=== PATIENT | male | born 1970 | race African-American/Black ===

== ENCOUNTER 2017-12-11 21:25 | Emergency (ER) | payer MEDICARE, OTHER, SELFPAY ==
[2017-12-11 21:41] VITALS: BP 103/63; PULSE 80; RESP 16; TEMP 37.4; O2SAT 99; BMI 29.3
[2017-12-12 00:22] VITALS: BP 110/71; PULSE 74; RESP 18; O2SAT 100
--- NOTE | 2017-12-12 00:29 | ED_ITS ---
HPI - Back Pain/Injury General Chief Complaint: Back Pain/Injury Stated Complaint: BACK PAIN, MEDS ARE NOT WORKING Time Seen by Provider: 12/12/17 00:09 Source: patient, family, RN notes reviewed and old records reviewed History of Present Illness HPI Narrative: Patient is a 47-year-old male who presents with back pain which is significantly worse today. He has ongoing problems with his liver with primary sclerosing cholangitis. He also has chronic ongoing back pain. He has been using a 10s unit he is going to physical therapy. He injured in the knee. He sometimes gets flares. Yesterday he was at physical therapy I today he started noticing worsening bilateral lumbar pain. No numbness or tingling in his legs. No changes in bowel or bladder habits and no fever. He typically takes Percocet for his pain which did not help today. He also has a back brace as well. He has no abdominal pain flank pain painful urination nausea or vomiting. He feels as though this is exacerbation of his ongoing back pain with out other all problems. MD Complaint: back pain Related Data Home Medications Medication Instructions Recorded Confirmed LIDOCAINE (LIDODERM) 1 ea TOPICAL SEE INSTRUCTIONS #0 05/28/16 12/11/17 alendronate-vitamin D3 [Fosamax 1 tab PO WEEKLY #0 tab 05/28/16 12/11/17 Plus D] calcium carbonate 500 mg PO BID #0 tab 05/28/16 12/11/17 esomeprazole magnesium [Nexium] 40 mg PO QDAY #0 05/28/16 12/11/17 furosemide 40 mg PO QDAY #0 05/28/16 12/11/17 lactulose 10 gm PO #0 ml 05/28/16 nadolol [Corgard] 80 mg PO QDAY #0 tab 05/28/16 12/11/17 ondansetron [Zofran ODT] 8 mg PO TIDP PRN #0 05/28/16 12/11/17 spironolactone [Aldactone] 100 mg PO QDAY #0 05/28/16 12/11/17 aspirin 81 mg PO QDAY #0 06/19/16 12/11/17 ACETAMINOPHEN 500 mg PO Q6HP PRN #0 06/25/16 12/11/17 rifaximin [Xifaxan] 550 mg PO BID #0 09/28/16 12/11/17 warfarin [Coumadin] 2.5 mg PO QDAY #0 09/28/16 12/11/17 oxycodone-acetaminophen 12/11/17 oxycodone-acetaminophen [Percocet] 1 tab PO Q4HP PRN 12/11/17 12/11/17 Previous Rx's Medication Instructions Recorded methocarbamol [Robaxin-750] 750 mg PO QIDP PRN #40 tab 03/08/17 diazepam [Valium] 5 mg PO BID PRN #10 tab 12/12/17 oxycodone-acetaminophen [Percocet] 2 tab PO Q6H PRN #10 tab 12/12/17 Allergies Allergy/AdvReac Type Severity Reaction Status Date / Time Iodinated Contrast- Oral and AdvReac Intermediate NAUSEA Verified 12/12/17 00:33 IV Dye [Iodinated Contrast Media - IV Dye] Review of Systems Review of Systems All systems reviewed & are unremarkable except as noted in HPI and below Constitutional Denies chills, Denies fever(s), Denies lethargy and Denies weakness Cardiovascular Denies chest pain, Denies dyspnea and Denies dyspnea on exertion Respiratory Denies cough, Denies dyspnea, Denies dyspnea on exertion and Denies wheezing Gastrointestinal Gastrointestinal: Denies abdominal pain, Denies change in bowel habits, Denies diarrhea, Denies nausea and Denies vomiting Genitourinary Denies urinary incontinence Musculoskeletal Reports system reviewed and no additional complaints, except as docu, Reports back pain, Denies atrophy, Reports limited range of motion, Denies muscle weakness, Reports stiffness and Denies tingling Neurologic Denies tingling and Denies weakness Allergic/Immunologic Denies wheezing PFSH Medical History Chronic back pain (Acute) Social History Smoking Status: Never smoker Exam Const General: healthy appearing Nutritional Appearance: average body habitus Other: Appears in pain Neck Neck: full ROM and no meningeal signs Chest Chest: normal inspection of the chest Resp Effort & Inspection: normal respiratory effort, able to speak in complete sentences, no respiratory distress and no use of accessory muscles Auscultation: clear to auscultation bilaterally, no rales, no rhonchi and no wheezes Cardio Rate: regular rate Rhythm: regular rhythm Heart Sounds: no click, no gallops, no murmurs and no rubs Pulses: normal peripheral pulses GI Inspection: non-distended Palpation: soft, no hepatosplenomegaly, No guarding, No pulsatile mass and No tender Auscultation: normal bowel sounds Back/Spine/Pelvis Other: Lower all bilateral lumbar tenderness he does have a 10s unit on each side and a back brace. No bony deformities. Neuro General: alert, awake, oriented x3, normal light touch, pain and propioception and normal sensation to monofilament Cognition: normal cognition Gait: normal gait MDM - Back Pain/Injury MDM Narrative Medical decision making narrative: Long discussion with patient. This seems to be an acute exacerbation of his chronic ongoing pain. He does not feel like his typical primary sclerosing cholangitis pain. His they tried to get into his primary unable to do so because she is on vacation. At this does happen to him occasionally. He does not have red flag symptoms at this time. Pain significantly improved with Valium and morphine. Differential Diagnosis Differential diagnosis: Likely lumbar radiculopathy, sciatica, strain of lumbar region, renal colic, pyelonephritis, thoracic back pain and AAA Medical Records Attestation: I reviewed the patient's medical records. Discharge Plan Departure Patient Disposition: Home, Self-Care Clinical Impression: Acute exacerbation of chronic low back pain Instructions: DI for Low Back Pain, DI for Back Pain With Sciatica Activity Restrictions/Additional Instructions: *You have been diagnosed with acute on chronic back pain *What to do: Continue with physical therapy, heating pad *Take medications as directed Valium 1 tablet every 12 hr only if needed for severe muscle spasm and pain -Percocet 1-2 tablets every 6 hr it only if needed for severe pain *Follow up with your primary care provider in 2-3 days *Return to ER if you should have worsening back pain, numbness, weakness, it urine incontinence, or any new, worsening or concerning symptoms CONTROLLED SUBSTANCE DISCHARGE (Narcotoic/benzodiazepine/Flexeril/Phenergan) 1. You have been prescribed narcotic medications, it does have acetaminophen/ Tylenol/paracetamol in it so do not take extra Tylenol or Tylenol containing products 2. Please understand that we cannot provide further refills of narcotics, benzodiazepines or controlled substances through the ED and her pain management will need to be through your provider. 3. While on these medications you cannot drive or operate heavy machinery. 4. You cannot sign legal documents or perform any duties such as this. 5. As long as you're taking opiate pain medications he should also be taking a stool softener such as Colace, Dulcolax, MiraLAX or prune juice, to help avoid constipation. Prescriptions: New oxycodone-acetaminophen [Percocet] 5-325 mg tablet 2 tab PO Q6H PRN (Reason: pain) Qty: 10 RF: 0 diazepam [Valium] 5 mg tablet 5 mg PO BID PRN (Reason: muscle spasm) Qty: 10 RF: 0 No Action alendronate-vitamin D3 [Fosamax Plus D] 70 MG/2,800 UNITS tablet 1 tab PO WEEKLY Qty: 0 RF: 0 esomeprazole magnesium [Nexium] 40 MG capsule,delayed release(DR/EC) 40 mg PO QDAY Qty: 0 RF: 0 calcium carbonate 200 MG tablet,chewable 500 mg PO BID Qty: 0 RF: 0 furosemide 20 MG tablet 40 mg PO QDAY Qty: 0 RF: 0 lactulose 10 GM/15 ML solution 10 gm PO Qty: 0 RF: 0 nadolol [Corgard] 80 MG tablet 80 mg PO QDAY Qty: 0 RF: 0 LIDOCAINE (LIDODERM) 1 ea Topical SEE INSTRUCTIONS Qty: 0 RF: 0 ondansetron [Zofran ODT] 8 MG tablet,disintegrating 8 mg PO TIDP PRN (Reason: Nausea) Qty: 0 RF: 0 spironolactone [Aldactone] 50 MG tablet 100 mg PO QDAY Qty: 0 RF: 0 aspirin 81 MG tablet,delayed release (DR/EC) 81 mg PO QDAY Qty: 0 RF: 0 ACETAMINOPHEN 500 mg PO Q6HP PRN (Reason: Pain (Scale Score 1-3)) Qty: 0 RF: 0 warfarin [Coumadin] 2.5 MG tablet 2.5 mg PO QDAY Qty: 0 RF: 0 rifaximin [Xifaxan] 550 MG tablet 550 mg PO BID Qty: 0 RF: 0 methocarbamol [Robaxin-750] 750 MG tablet 750 mg PO QIDP PRNQty: 40 RF: 0 oxycodone-acetaminophen 5-325 mg tablet RF: 0 oxycodone-acetaminophen [Percocet] 5 MG/325 MG tablet 1 tab PO Q4HP PRN (Reason: pain) RF: 0 Referrals: Brando Lucero MD [Primary Care Provider] -
[2017-12-12] MEDS: MORPHINE 4 MG/ML VIAL INJ (00:38)
[2017-12-12] MEDS: diazePAM 5 MG TABLET PO (00:50)
[2017-12-12] MEDS: ONDANSETRON 4 MG ODT PO (00:51)
--- NOTE | 2017-12-12 00:52 | PC.NURSE ---
pt reports got nauseated after medicated with morphine and valium. medicated with zofran 4mg ODT after orders obtained.
[2017-12-12 01:10] VITALS: BP 112/74; PULSE 79; RESP 18; O2SAT 98
[2017-12-12 01:42] VITALS: BP 106/68; PULSE 79; RESP 12; O2SAT 98
== END 2017-12-12 01:44 | disposition home or self-care (01) ==
PROVIDERS: Emergency Provider Emergency Medicine; PCP Internal Medicine
DX: M54.5 Low back pain (principal); G89.29 Other chronic pain
CPT/HCPCS: 96372; 99283; J2270

== ENCOUNTER 2017-12-21 19:02 | Emergency (ER) | payer MEDICARE, OTHER, SELFPAY ==
[2017-12-21] VITALS (12 sets, daily range): BP systolic 61–108; BP diastolic 40–64; PULSE 58–71; RESP 16–99; TEMP 36.6–37.2; O2SAT 99–100
[2017-12-21] MEDS: CEFTRIAXONE 1 GM/50 ML FROZ.PIGGY IV (20:02)
--- NOTE | 2017-12-21 20:04 | PC.NURSE ---
Ed MD attempted central line after multiple peripheral IV attempts in arm. Central Line wire persistently hit something. ED MD decided to do R EJ with 14g catheter. Currently flushes will not draw blood.
[2017-12-21] MEDS: METOCLOPRAMIDE 10 MG/2 ML INJ IV (20:21)
[2017-12-21] MEDS: OCTREOTIDE 100 MCG/ML VIAL 50 MCG IV (20:22)
[2017-12-21 20:35] LABS: INR 2.6 (0.9-1.3); Prothrombin Time 27.7 SECONDS (10.1-12.7)
[2017-12-21 20:36] LABS: Add Manual Diff / Slide Review NO; Basophils Percent Auto 0.9 % (0-2); Eosinophils Percent Auto 3.7 % (2-4); Lymphocytes Percent Auto 13.4 % (25-40); Mean Corpuscular HGB Conc 32.5 % (30-36); Monocytes Percent Auto 11.2 % (3-14); Neutrophils Absolute Auto 5800 /uL (3000-5900); Neutrophils Percent Auto 70.8 % (50-75); Red Cell Distribution Width 24.3 % (11.6-14.8); White Blood Cell Count 8.2 X10^3/uL (4.5-11.0)
[2017-12-21 20:38] LABS: PTT Partial Thromboplastin Tim 41 SECONDS (26.4-36.2)
[2017-12-21] MEDS: SODIUM CHLORIDE 0.9% 1,000 ML 1000 ML IV ×2 (20:38→22:20)
[2017-12-21 20:39] LABS: BUN Creatinine Ratio 17.8 (6-22); Calcium 8.1 mg/dL (8.4-10.2); Estimated Glomerular Filt Rate > 60.0 mL/min (>60); Glucose 148 mg/dL (70-100); HEMOLYSIS < 15 (0-50); Sodium 132 mmol/L (137-145)
[2017-12-21] MEDS: PANTOPRAZOLE 80 MG in SODIUM CHLORIDE 0.9% 100 ML 10 ML IV (20:39)
[2017-12-21 20:40] LABS: Hematocrit 21.5 % (41-53)
[2017-12-21 20:41] LABS: Platelet Count 96 X10^3/uL (150-400)
[2017-12-21 20:43] LABS: Potassium 6.1 mmol/L (3.4-5.1)
[2017-12-21 20:53] LABS: Hypochromasia 1+; Poikilocytosis 1+; Polychromasia 1+
[2017-12-21] MEDS: OCTREOTIDE 500 MCG in SODIUM CHLORIDE 0.9% 100 ML 10.1 ML IV (20:53)
[2017-12-21 20:54] LABS: Anisocytosis 3+
--- NOTE | 2017-12-21 21:16 | DI.RAD.S_ITS ---
PROCEDURE: XR CHEST 1V INDICATIONS: vomitting TECHNIQUE: One view of the chest was acquired. COMPARISON: [facility], , CHEST 1 VIEW, 07/26/2016, 8:52. FINDINGS: Surgical changes and devices: None. Lungs and pleura: Lung volumes are low. There is mild atelectasis at the left lung base and right midlung. No pleural effusions or pneumothorax. Lungs are clear. Mediastinum: Mediastinal contours appear normal. Heart size is normal. Bones and chest wall: No suspicious bony lesions. Overlying soft tissues appear unremarkable. IMPRESSION: Low lung volumes and atelectasis. Dictated by: Mariella Bustamante M.D. on 12/21/2017 at 21:31 Approved by: Mariella Bustamante M.D. on 12/21/2017 at 21:32
[2017-12-21] MEDS: INSULIN REGULAR 100 UNIT/ML 3 ML VIAL 10 UNIT IV (21:27)
[2017-12-21] MEDS: DEXTROSE 50 % IN WATER 25 GM/50 ML SYRINGE IV (21:27)
[2017-12-21] MEDS: CALCIUM GLUCONATE 9.3 MEQ in SODIUM CHLORIDE 0.9% 50 ML 140 ML IV (23:09)
[2017-12-21] MEDS: PROTHROMBIN CPLX(PCC)4FACT 1,000 UNIT/40 ML VIAL 2500 UNIT IV (23:12)
[2017-12-21 23:19] LABS: Add Manual Diff / Slide Review NO; Basophils Percent Auto 0.2 % (0-2); Eosinophils Percent Auto 1.5 % (2-4); Hematocrit 21.3 % (41-53); Lymphocytes Percent Auto 11.2 % (25-40); Mean Corpuscular HGB Conc 32.3 % (30-36); Mean Corpuscular Hemoglobin 25.4 PG (26-34); Mean Corpuscular Volume 78.7 fL (80-100); Monocytes Percent Auto 12.2 % (3-14); Neutrophils Absolute Auto 5300 /uL (3000-5900); Neutrophils Percent Auto 74.9 % (50-75); Red Blood Cell Count 2.71 X10^6/uL (4.5-5.9); White Blood Cell Count 7.1 X10^3/uL (4.5-11.0)
[2017-12-21 23:20] LABS: Platelet Count 75 X10^3/uL (150-400)
[2017-12-21 23:22] LABS: Hemoglobin 6.9 g/dL (13.5-17.5)
[2017-12-21] MEDS: ONDANSETRON 4 MG/2 ML INJ IV (23:23)
[2017-12-21 23:24] LABS: Alanine Aminotransferase 50 IU/L (21-72); Albumin 2.1 g/dL (3.5-5.0); Albumin Globulin Ratio 0.8 (1.0-2.8); Alkaline Phosphatase 227 U/L (38-126); Aspartate Aminotransferase 60 IU/L (17-59); BUN Creatinine Ratio 17.8 (6-22); Bilirubin Total 1.1 mg/dL (0.2-1.3); Calcium 7.4 mg/dL (8.4-10.2); Estimated Glomerular Filt Rate > 60.0 mL/min (>60); Globulin 2.7 g/dL (1.7-4.1); Glucose 97 mg/dL (70-100); HEMOLYSIS < 15 (0-50); Sodium 135 mmol/L (137-145); Total Protein 4.8 g/dL (6.3-8.2)
[2017-12-21 23:25] LABS: Potassium 5.7 mmol/L (3.4-5.1)
--- NOTE | 2017-12-21 23:37 | PC.NURSE ---
at 2218 pt's BP noted to be 70/42, pt awake but speach noted to be slower than earlier in stay. MD notified, pt noted to have 3 BP's in a row between 78/40 and 74/44. 2 Units blood started, 2nd bag NS bolused and Prothrombin ordered.
[2017-12-22 00:04] VITALS: BP 103/59; PULSE 70; RESP 15; O2SAT 99
--- NOTE | 2017-12-22 00:15 | ED.ABDPAIN ---
HPI - Abdominal Pain General Chief Complaint: Abdominal Pain Stated Complaint: 'VOMITTING ALOT' Time Seen by Provider: 12/21/17 19:17 History of Present Illness HPI narrative: HPI 47-year-old male with history of primary sclerosing cholangitis with secondary varices (s/p banding and recurrent upper GI bleeds) presents with decreased mentation and a triage SBP of 60-80 mmHg in the setting of 2 hours of bright red bloody emesis. Patient denies dark tarry stools, coffee ground emesis, or further symptoms. Minimal history available secondary to patient's decreased level of consciousness. Occluded portal vein, on Warfarin. M/S/F/SocHx notable for: please see HPI; remainder reviewed with patient and in chart. ROS: appears to be negative for constitutional, eye, cardiovascular, pulmonary, GI, , MSK, skin, neurologic, psychiatric, endocrine unless noted in the HPI (history obtained from patient and significant other). Exam Gen: pleasant, unwell -appearing, decreased level of consciousness, respond slowly but appropriately. HEENT: NC, AT, PEERL, EOMI. Resp: Clear to auscultation bilaterally, normal work of breathing, no accessory muscle usage. Card: Regular rate and rhythm with no murmurs, rubs, or gallops, extremities warm and well perfused. GI: Non-tender to palpation throughout all quadrants, no focal tenderness at McBurney's point, negative Mcclendon's sign, non-distended, no rebound or guarding. : No suprapubic tenderness to palpation. MSK: No visible deformities, strength and tone without visually appreciable deficit. Skin: Normal color with no visible lesions. Neuro: AO x 3, no facial asymmetry, vision and hearing WNL. Psych: Mood and affect appropriate. Labs / Imaging: Hb 7.0 (baseline 7.6 to 9.1), WBC 8.2, PT/INR 2.6, aPTT 41, sodium 132, potassium 6.1, glucose 148, creatinine 0.90, BUN 16.0 CXR: no acute cardiopulmonary disease process. Radiologist read pending. EKG: SR at [address]-segment elevations or depressions, T-wave inversions or new LBBB. MDM Previous chart, nursing note, labs, imaging, and vitals reviewed. A: 47-year-old male with history of primary sclerosing cholangitis with secondary varices (s/p banding and recurrent upper GI bleeds) presents with decreased mentation and a triage SBP of 60-80 mmHg in the setting of 2 hours of bright red bloody emesis. DDx: upper GI bleed (variceal, esophageal, gastric, duodenal), hypovolemia. Evaluation: patient with suspected variceal upper GI bleed, borderline for transfusion, type and screen ordered, patient remains well compensated (likely due to his long-standing anemia), patient with hypokalemia of uncertain etiology, calcium, insulin, and glucose given. ED Course: * requested bilateral largebore PIVs. Nursing unable to obtain peripheral access. * Verbal consent obtained for central access, attempted as below. * Due to single point of access during initial resuscitation patient given PPI and octreotide as boluses followed by 1 g ceftriaxone episode, octreotide drip. * Discuss case with Dr. Roy.Roxanne at , patient accepted. No beds presently available. As the patient is tenuously stable, likely will be considered for a liver transplant, and has had all of his prior care at ongoing care in the emergency department (versus transfer to another facility) is felt to be in the patient's best overall interest. * Approximately 10:30 PM patient with recurrent hypotension, nausea, and scant apparently bright red emesis. Updated [facility], anticipate bed being available at midnight. * Central line placed as document are below. Patient given 2 units PRBCs, PCC, and a NS bolus. * Patient transferred by helicopter EMS to . Impression: upper GI bleed, anemia, hyperkalemia. (please reference below for remainder of encounter information) Internal Jugular Central Line Placement Indication: unreliable peripheral access, extended administration of caustic medications, volume resuscitation. Consent: verbal. Risks and benefits including hemorrhage, infection, pain, the need for further surgery, as well as adverse drug reactions were discussed with the patient. After a time out in which the patient's identity was confirmed verbally and by their wrist band, the patient was placed in a 15 degrees of [place] and the right internal jugular vein was prepped, draped and accessed with a needle under direct ultrasound guidance, non-pulsatile blood return was identified and the guide wire was advanced, at a depth of 10-15 cm resistance was encountered, the guidewire was gently withdrawn several centimeters, rotated, and re-advanced gently. Resistance was again encountered. The guide wire was withdrawn and venipuncture was again obtained under direct ultrasound guidance at approximately the same level in the internal jugular but more lateral in the vein, the guidewire was again placed through the introducer needle advanced without resistance until 10-15 cm when resistance was then encountered. The guidewire was reconfirmed to clearly be in the lumen of the internal jugular and was visualized by ultrasound extending into the right brachiocephalic vein. The wire was withdrawn. Due to concerns of tortuous vessels the central line was not placed. A 14gauge PIV was obtained and threaded over the guide wire into the internal jugular. Dark nonpulsatile blood could be freely aspirated and the line flushed without resistance. The line was sutured in place and secured with a Tegaderm. Central Line - Femoral Indication: unreliable peripheral access, extended administration of caustic medications, volume resuscitation. Consent: verbal. Risks and benefits including hemorrhage, infection, pain, the need for further surgery, as well as adverse drug reactions were felt to be outweighed by expected benefit and it was in the patient???s best interests for a central line to be placed. After a time out in which the patient's identity was confirmed verbally, the patient was placed in a semi-supine position of comfort and the left femoral vein was prepped, draped and accessed with a needle under direct ultrasound guidance, non-pulsatile blood return was identified and the guide wire advanced without obvious resistance. The needle was then removed, the guidewire was confirmed to be in the lumen of the vein through a longitudinal ultrasound visualization, and a scalpel was used to make a small skin incision. A cordis catheter with dilator was then placed in the vein. Through the central lumen of the cordis a triple-lumen catheter was also placed. The white poor of the triple-lumen catheter would flush and draw, the remaining 2 ports would flush but not draw, and the side port of the cordis would flush and drop. The line was sutured in place and a sterile dressing applied (Biopatch not available). The patient tolerated the procedure well without any apparent complications. Critical Care Time Organ system(s): Cardiopulmonary, GI Intervention: Assessment of the patient, interpretation of studies, communication related to patient care. Time: 74 minutes were spent directly related to patient care exclusive of separately billed procedures. Related Data Home Medications Medication Instructions Recorded Confirmed LIDOCAINE (LIDODERM) 1 ea TOPICAL SEE INSTRUCTIONS #0 05/28/16 12/11/17 alendronate-vitamin D3 [Fosamax 1 tab PO WEEKLY #0 tab 05/28/16 12/11/17 Plus D] calcium carbonate 500 mg PO BID #0 tab 05/28/16 12/11/17 esomeprazole magnesium [Nexium] 40 mg PO QDAY #0 05/28/16 12/11/17 furosemide 40 mg PO QDAY #0 05/28/16 12/11/17 lactulose 10 gm PO #0 ml 05/28/16 nadolol [Corgard] 80 mg PO QDAY #0 tab 05/28/16 12/11/17 ondansetron [Zofran ODT] 8 mg PO TIDP PRN #0 05/28/16 12/11/17 spironolactone [Aldactone] 100 mg PO QDAY #0 05/28/16 12/11/17 aspirin 81 mg PO QDAY #0 06/19/16 12/11/17 ACETAMINOPHEN 500 mg PO Q6HP PRN #0 06/25/16 12/11/17 rifaximin [Xifaxan] 550 mg PO BID #0 09/28/16 12/11/17 warfarin [Coumadin] 2.5 mg PO QDAY #0 09/28/16 12/11/17 oxycodone-acetaminophen 12/11/17 oxycodone-acetaminophen [Percocet] 1 tab PO Q4HP PRN 12/11/17 12/11/17 Previous Rx's Medication Instructions Recorded methocarbamol [Robaxin-750] 750 mg PO QIDP PRN #40 tab 03/08/17 diazepam [Valium] 5 mg PO BID PRN #10 tab 12/12/17 oxycodone-acetaminophen [Percocet] 2 tab PO Q6H PRN #10 tab 12/12/17 Allergies Allergy/AdvReac Type Severity Reaction Status Date / Time Iodinated Contrast- Oral and AdvReac Intermediate NAUSEA Verified 12/12/17 00:33 IV Dye [Iodinated Contrast Media - IV Dye] PFSH Medical History Chronic back pain (Acute) Social History Smoking Status: Never smoker Exam Initial Vital Signs Initial Vital Signs: Vital Signs Temperature 97.8 F 12/21/17 19:05 Pulse Rate 58 L 12/21/17 19:05 Respiratory Rate 20 12/21/17 19:05 Blood Pressure 61/41 L 12/21/17 19:05 Pulse Oximetry 100 12/21/17 19:05 Course Orders Ordered: ED Orders 12/21/17 20:20 Basic Metabolic Panel Stat Complete Blood Count AUTO DIFF Stat Packed Cells Stat Partial Thromboplastin Time Stat Prothrombin Time INR Stat Type and Screen Stat 12/21/17 21:13 EKG-12 Lead Stat 12/21/17 21:16 XR chest 1V Stat 12/21/17 23:03 Complete Blood Count AUTO DIFF Stat Comprehensive Metabolic Panel Stat Octreotide Acetate 500 mcg/ (Sodium Chloride) 101 mls @ 10.1 mls/hr IV CONT EDGAR; Protocol Last Admin: 12/21/17 20:53 Dose: 50 mcg/hr, 10.1 mls/hr Pantoprazole Sodium 80 mg/ (Sodium Chloride) 100 mls @ 10 mls/hr IV NOW ONE Stop: 12/22/17 05:16 Last Admin: 12/21/17 20:57 Dose: Not Given Pantoprazole Sodium 80 mg/ (Sodium Chloride) 100 mls @ 10 mls/hr IV CONT EDGAR Last Admin: 12/21/17 20:39 Dose: 8 mg/hr, 10 mls/hr Norepinephrine Bitartrate 4 mg (/ Dextrose) 254 mls @ 30.48 mls/hr IV TITRATE EDGAR; Protocol Sodium Chloride (Normal Saline 0.9%) 1,000 mls @ 1,000 mls/hr IV BOLUS ONE Stop: 12/22/17 00:21 Last Infusion: 12/21/17 23:24 Dose: 0 mls/hr Admin: 12/21/17 22:20 Dose: 1,000 mls/hr Prothrombin Complex Concent (Human) (Kcentra 1,000 Unit Vial) 2,500 unit IV NOW EDGAR Last Admin: 12/21/17 23:12 Dose: 2,500 unit Discontinued Medications Dextrose (D50w) 25 gm IV NOW ONE Stop: 12/21/17 21:12 Last Admin: 12/21/17 21:27 Dose: 25 gm Ceftriaxone Sodium/Dextrose (Rocephin) 1 gm in 50 mls @ 100 mls/hr IV NOW ONE Stop: 12/21/17 19:46 Last Admin: 12/21/17 20:02 Dose: 100 mls/hr Sodium Chloride (Normal Saline 0.9%) 1,000 mls @ 1,000 mls/hr IV BOLUS ONE Stop: 12/21/17 20:16 Last Infusion: 12/21/17 23:51 Dose: 1,000 mls/hr Admin: 12/21/17 20:38 Dose: 1,000 mls/hr Calcium Gluconate 9.3 meq/ (Sodium Chloride) 70 mls @ 140 mls/hr IV NOW ONE Stop: 12/21/17 21:12 Last Admin: 12/21/17 23:09 Dose: 140 mls/hr Insulin Human Regular (Humulin R) 10 unit IV NOW ONE Stop: 12/21/17 21:12 Last Admin: 12/21/17 21:27 Dose: 10 unit Metoclopramide HCl (Reglan) 10 mg IV NOW ONE Stop: 12/21/17 20:19 Last Admin: 12/21/17 20:21 Dose: 10 mg Octreotide Acetate (Sandostatin) 50 mcg IV NOW ONE Stop: 12/21/17 19:18 Last Admin: 12/21/17 20:22 Dose: 50 mcg Ondansetron HCl (Zofran) 4 mg IV NOW ONE Stop: 12/21/17 23:23 Last Admin: 12/21/17 23:23 Dose: 4 mg Vital Signs - 8 hr 12/21/17 19:05 12/21/17 19:20 12/21/17 21:00 Temperature 97.8 F Pulse Rate 58 L 69 70 Respiratory Rate 20 18 18 Blood Pressure 61/41 L Blood Pressure [Right Arm] 108/59 L 89/61 L Pulse Oximetry 100 99 99 12/21/17 21:05 12/21/17 22:18 12/21/17 22:20 Temperature Pulse Rate 70 71 70 Respiratory Rate 18 99 H 20 Blood Pressure Blood Pressure [Right Arm] 103/59 L 70/42 L 78/40 L Pulse Oximetry 100 99 12/21/17 22:37 12/21/17 22:56 12/21/17 23:06 Temperature 98.9 F 98.7 F 98.9 F Pulse Rate 70 69 70 Respiratory Rate 17 18 21 Blood Pressure 92/57 L 92/58 L 96/62 Blood Pressure [Right Arm] Pulse Oximetry 12/21/17 23:12 12/21/17 23:25 12/21/17 23:34 Temperature 98.7 F 98.7 F Pulse Rate 70 70 68 Respiratory Rate 20 20 16 Blood Pressure 94/58 L 98/56 L Blood Pressure [Right Arm] 104/64 Pulse Oximetry 99 12/22/17 00:04 Temperature Pulse Rate 70 Respiratory Rate 15 Blood Pressure Blood Pressure [Right Arm] 103/59 L Pulse Oximetry 99 MDM - Abdominal Pain Lab Data Result diagrams: 12/21/17 23:03 12/21/17 23:03 Lab Results 12/21/17 12/21/17 12/21/17 Range/Units 20:20 20:20 20:20 WBC 8.2 (4.5-11.0) X10^3/uL RBC 2.80 L (4.5-5.9) X10^6/uL Hgb 7.0 L (13.5-17.5) g/dL Hct 21.5 L (41-53) % MCV 77.0 L (80-100) fL MCH 25.0 L (26-34) PG MCHC 32.5 (30-36) % RDW 24.3 H (11.6-14.8) % Plt Count 96 L (150-400) X10^3/uL Neut % (Auto) 70.8 (50-75) % Lymph % (Auto) 13.4 L (25-40) % George % (Auto) 11.2 (3-14) % Eos % (Auto) 3.7 (2-4) % Baso % (Auto) 0.9 (0-2) % Neut # (Auto) 5800 (9223-9685) /uL RBC Morphology Not Reportable Polychromasia 1+ H Hypochromasia 1+ H Poikilocytosis 1+ H Anisocytosis 3+ H PT 27.7 H (10.1-12.7) SECONDS INR 2.6 H (0.9-1.3) APTT 41 H (26.4-36.2) SECONDS Sodium 132 L (137-145) mmol/L Potassium 6.1 H (3.4-5.1) mmol/L Chloride 100.0 (98-107) mmol/L Carbon Dioxide 27.0 (22-32) mmol/L BUN 16.0 (9-20) mg/dL Creatinine 0.90 (0.66-1.25) mg/dL Estimated GFR > 60.0 (>60) mL/min BUN/Creatinine Ratio 17.8 (6-22) Glucose 148 H (70-100) mg/dL Calcium 8.1 L (8.4-10.2) mg/dL Total Bilirubin (0.2-1.3) mg/dL AST (17-59) IU/L ALT (21-72) IU/L Alkaline Phosphatase (38-126) U/L Total Protein (6.3-8.2) g/dL Albumin (3.5-5.0) g/dL Globulin (1.7-4.1) g/dL Albumin/Globulin Ratio (1.0-2.8) Blood Type Antibody Screen Crossmatch ([facility]) 12/21/17 12/21/17 12/21/17 Range/Units 20:20 23:03 23:03 WBC 7.1 (4.5-11.0) X10^3/uL RBC 2.71 L (4.5-5.9) X10^6/uL Hgb 6.9 L* (13.5-17.5) g/dL Hct 21.3 L (41-53) % MCV 78.7 L (80-100) fL MCH 25.4 L (26-34) PG MCHC 32.3 (30-36) % RDW 24.0 H (11.6-14.8) % Plt Count 75 L (150-400) X10^3/uL Neut % (Auto) 74.9 (50-75) % Lymph % (Auto) 11.2 L (25-40) % George % (Auto) 12.2 (3-14) % Eos % (Auto) 1.5 L (2-4) % Baso % (Auto) 0.2 (0-2) % Neut # (Auto) 5300 (7838-5749) /uL RBC Morphology Polychromasia Hypochromasia Poikilocytosis Anisocytosis PT (10.1-12.7) SECONDS INR (0.9-1.3) APTT (26.4-36.2) SECONDS Sodium 135 L (137-145) mmol/L Potassium 5.7 H (3.4-5.1) mmol/L Chloride 103.0 (98-107) mmol/L Carbon Dioxide 26.0 (22-32) mmol/L BUN 16.0 (9-20) mg/dL Creatinine 0.90 (0.66-1.25) mg/dL Estimated GFR > 60.0 (>60) mL/min BUN/Creatinine Ratio 17.8 (6-22) Glucose 97 (70-100) mg/dL Calcium 7.4 L (8.4-10.2) mg/dL Total Bilirubin 1.1 (0.2-1.3) mg/dL AST 60 H (17-59) IU/L ALT 50 (21-72) IU/L Alkaline Phosphatase 227 H (38-126) U/L Total Protein 4.8 L (6.3-8.2) g/dL Albumin 2.1 L (3.5-5.0) g/dL Globulin 2.7 (1.7-4.1) g/dL Albumin/Globulin Ratio 0.8 L (1.0-2.8) Blood Type O Positive Antibody Screen Negative Crossmatch ([facility]) See Detail Discharge Plan Departure Prescriptions: No Action alendronate-vitamin D3 [Fosamax Plus D] 70 MG/2,800 UNITS tablet 1 tab PO WEEKLY Qty: 0 RF: 0 esomeprazole magnesium [Nexium] 40 MG capsule,delayed release(DR/EC) 40 mg PO QDAY Qty: 0 RF: 0 calcium carbonate 200 MG tablet,chewable 500 mg PO BID Qty: 0 RF: 0 furosemide 20 MG tablet 40 mg PO QDAY Qty: 0 RF: 0 lactulose 10 GM/15 ML solution 10 gm PO Qty: 0 RF: 0 nadolol [Corgard] 80 MG tablet 80 mg PO QDAY Qty: 0 RF: 0 LIDOCAINE (LIDODERM) 1 ea Topical SEE INSTRUCTIONS Qty: 0 RF: 0 ondansetron [Zofran ODT] 8 MG tablet,disintegrating 8 mg PO TIDP PRN (Reason: Nausea) Qty: 0 RF: 0 spironolactone [Aldactone] 50 MG tablet 100 mg PO QDAY Qty: 0 RF: 0 aspirin 81 MG tablet,delayed release (DR/EC) 81 mg PO QDAY Qty: 0 RF: 0 ACETAMINOPHEN 500 mg PO Q6HP PRN (Reason: Pain (Scale Score 1-3)) Qty: 0 RF: 0 warfarin [Coumadin] 2.5 MG tablet 2.5 mg PO QDAY Qty: 0 RF: 0 rifaximin [Xifaxan] 550 MG tablet 550 mg PO BID Qty: 0 RF: 0 methocarbamol [Robaxin-750] 750 MG tablet 750 mg PO QIDP PRNQty: 40 RF: 0 oxycodone-acetaminophen 5-325 mg tablet RF: 0 oxycodone-acetaminophen [Percocet] 5 MG/325 MG tablet 1 tab PO Q4HP PRN (Reason: pain) RF: 0 oxycodone-acetaminophen [Percocet] 5-325 mg tablet 2 tab PO Q6H PRN (Reason: pain) Qty: 10 RF: 0 diazepam [Valium] 5 mg tablet 5 mg PO BID PRN (Reason: muscle spasm) Qty: 10 RF: 0
[2017-12-22 00:25] VITALS: BP 103/59; PULSE 70; RESP 16; O2SAT 99
== END 2017-12-22 00:28 | disposition short-term general hospital (02) ==
PROVIDERS: Emergency Provider Emergency Medicine; PCP Internal Medicine
DX: K92.2 Gastrointestinal hemorrhage, unspecified (principal); D64.9 Anemia, unspecified; E87.5 Hyperkalemia
CPT/HCPCS: 36415; 36430; 36569; 71045; 80048; 80053; 85025; 85610; 85730; 86850; 86900; 86901; 93005; 96365; 96366; 96375; 99284; 99285; 99291; 99292; P9016; C9113; C9132; J0610; J2354; J2405; J2765

== ENCOUNTER → 2018-01-15 13:45 | Outpatient (CLI) | payer MEDICARE, OTHER, SELFPAY ==
--- NOTE | 2018-01-15 | DI.MRI.S_ITS ---
PROCEDURE: MR LUMBAR SPINE WO CON INDICATIONS: LOW BACK PAIN TECHNIQUE: Noncontrast sagittal T1 spin echo and T2 fast echo, sagittal STIR, axial T1 and T2 fast spin echo through the lumbar spine. In cases with scoliosis, additional coronal T2 fast spin echo may be performed. COMPARISON: [facility], CT, CHEST/ABD/PEL WITH CONTRAST, 06/25/2016, 23:30. [facility], CR, ABDOMEN ACUTE SERIES, 05/30/2016, 13:46. FINDINGS: Image quality: Excellent. Alignment and Curvature: There is normal bony alignment. Bone Marrow: Marrow is of normal overall signal. No acute vertebral body compression fractures. Schmorl's node invaginates the superior S1 endplate, as before. Severe reactive signal within the endplates adjacent to the the L5-S1 intervertebral disc. Spinal Cord: Conus medullaris terminates at the mid L1 level. Visualized cord demonstrates normal signal and size. Paraspinous Soft Tissues: No paravertebral masses. L1-L2: Bilateral facet hypertrophy. No significant canal, nor foraminal stenosis. L2-L3: Bilateral facet hypertrophy. No significant canal, nor foraminal stenosis. L3-L4: Bilateral facet hypertrophy. No significant canal, nor foraminal stenosis. L4-L5: Disc desiccation and diffuse disc bulge. Bilateral facet hypertrophy. Mild canal stenosis. Mild foraminal stenosis bilaterally. L5-S1: Disc desiccation and diffuse disc bulge. Bilateral facet hypertrophy. Mild canal stenosis. Moderate foraminal stenosis bilaterally. IMPRESSION: 1. Lower lumbar and lumbosacral degenerative disc and facet disease, causing mild canal stenoses. 2. Moderate bilateral L5-S1 foraminal stenoses. Dictated by: Tin Darby M.D. on 01/15/2018 at 14:34 Approved by: Tin Darby M.D. on 01/15/2018 at 14:38
== END ==
PROVIDERS: PCP Internal Medicine; Visit Provider Internal Medicine
DX: M54.5 Low back pain (principal); M51.36 Other intervertebral disc degeneration, lumbar region; M48.061 Spinal stenosis, lumbar region without neurogenic claudication
CPT/HCPCS: 72148

== ENCOUNTER 2019-03-03 15:18 | Emergency (ER) | payer MEDICARE, OTHER, SELFPAY ==
--- NOTE | 2019-03-03 15:38 | DI.RAD.S_ITS ---
PROCEDURE: XR CHEST 2V INDICATIONS: SOB, known pleural effusion TECHNIQUE: 2 views of the chest were acquired. COMPARISON: [facility], , XR CHEST 1V, 12/21/2017, 21:20. [facility], , CHEST 1 VIEW, 07/26/2016, 8:52. FINDINGS: Surgical changes and devices: None. Lungs and pleura: Lungs are abnormal, with what appears to be a moderately large subpulmonic right effusion, and possible right lung base pneumonia. No pleural effusions or pneumothorax. Mediastinum: Mediastinal contours are normal. Heart size is normal. Bones and chest wall: No suspicious bony abnormalities. Soft tissues appear unremarkable. IMPRESSION: Moderately large right pleural effusion beneath the right lung, suspect pneumonia beneath the area obscured by the pleural fluid. A lung mass conceivably could be superimposed in this area and depending on the clinical status followup by CT scanning may be warranted. Dictated by: Sivakumar Silva M.D. on 03/03/2019 at 16:51 Approved by: Sivakumar Silva M.D. on 03/03/2019 at 16:53
[2019-03-03 15:45] VITALS: BP 124/78; PULSE 64; RESP 16; TEMP 36.9; O2SAT 98; BMI 30.3
--- NOTE | 2019-03-03 15:58 | PC.NURSE ---
pt reports, 4 days ago pt under anesthesia for transplant, woke up developed shortness of breath with coughing.
[2019-03-03 16:04] LABS: Add Manual Diff / Slide Review NO; Basophils Absolute Auto 0 /uL (0-100); Basophils Percent Auto 0.3 % (0-2); Eosinophils Absolute Auto 300 /uL (0-450); Eosinophils Percent Auto 5.9 % (2-4); Hematocrit 34.3 % (41-53); Hemoglobin 11.4 g/dL (13.5-17.5); Lymphocytes Absolute Auto 700 /uL (1100-4500); Mean Corpuscular HGB Conc 33.2 % (30-36); Mean Corpuscular Hemoglobin 30.1 PG (26-34); Mean Corpuscular Volume 90.5 fL (80-100); Monocytes Absolute Auto 600 /uL (0-900); Monocytes Percent Auto 12.5 % (3-14); Neutrophils Absolute Auto 3100 /uL (1500-7000); Neutrophils Percent Auto 66.3 % (50-75); Red Blood Cell Count 3.79 X10^6/uL (4.5-5.9); Red Cell Distribution Width 18.7 % (11.6-14.8); White Blood Cell Count 4.7 X10^3/uL (4.5-11.0)
[2019-03-03 16:14] LABS: Platelet Count 90 X10^3/uL (150-400)
[2019-03-03 16:23] LABS: B Type Natriuretic Peptide < 100 (<100)
[2019-03-03 16:27] VITALS: BP 102/65; PULSE 59; RESP 16; O2SAT 95
[2019-03-03 16:31] VITALS: BP 102/65; PULSE 60; RESP 15; O2SAT 99
[2019-03-03 16:45] LABS: Blood Urea Nitrogen 18 mg/dL (9-20); Calcium 8.9 mg/dL (8.4-10.2); Carbon Dioxide 24 mmol/L (22-32); Chloride 101 mmol/L (98-107); Estimated Glomerular Filt Rate > 60.0 mL/min (>60); Glucose 172 mg/dL (70-100); HEMOLYSIS < 15 (0-50); Potassium 4.5 mmol/L (3.4-5.1); Sodium 135 mmol/L (137-145)
[2019-03-03 17:00] VITALS: BP 111/74; PULSE 64; RESP 17; O2SAT 97
[2019-03-03 17:13] LABS: INR 3.3 (0.9-1.3); Prothrombin Time 38.9 SECONDS (10.1-12.7)
[2019-03-03 17:50] VITALS: BP 114/73; PULSE 58; RESP 16; O2SAT 96
--- NOTE | 2019-03-03 18:01 | ED_ITS ---
HPI - SOB/Dyspnea General Chief Complaint: Shortness of Breath/Dyspnea Stated Complaint: TROUBLE BREATHING Time Seen by Provider: 03/03/19 15:25 Source: patient and family Mode of arrival: ambulatory Limitations: no limitations History of Present Illness 48-year-old male nonsmoker with an extensive medical history including the need for liver, pancreas and bowel transplant presents at the request of his transplant team for evaluation of shortness of breath. The patient complains of some mild worsening shortness of breath over the past few days, worse when he lays flat. On Sunday he was called to the surgical center because he had m atched with an organ donor and had been sedated by Anesthesia and they noted that the donor had some type of incompatibility so the patient did not have his surgery. He does have a known right-sided pleural effusion but has never had an occurrence for thoracentesis. He denies any chest pain. He is not dizzy nor lightheaded. MD Complaint: shortness of breath Onset (ago): hour(s) Context: occurred during exertion Severity: mild Consistency/Duration: constant Relieving factors: upright position Exacerbating factors: lying flat Associated symptoms: denies other symptoms Treatment prior to arrival: oxygen Related Data Home oxygen amount: none Home Medications Medication Instructions Recorded Confirmed Fosamax Plus D 1 tab PO WEEKLY #0 tab 05/28/16 12/11/17 nadolol [Corgard] 80 mg PO DAILY #0 tab 05/28/16 03/03/19 aspirin 81 mg PO DAILY #0 06/19/16 12/11/17 acetaminophen 500 mg PO Q6H PRN #0 06/25/16 03/03/19 rifaximin [Xifaxan] 550 mg PO BID #0 09/28/16 12/11/17 calcium carbonate 500 mg PO BID 03/03/19 ciprofloxacin HCl 500 mg PO DAILY 03/03/19 03/03/19 furosemide 40 mg PO DAILY 03/03/19 03/03/19 omeprazole 20 mg PO BID 03/03/19 03/03/19 oxycodone 5 mg PO BID 03/03/19 03/03/19 spironolactone [Aldactone] 100 mg PO DAILY 03/03/19 03/03/19 warfarin 2 mg PO DAILY 03/03/19 Allergies Allergy/AdvReac Type Severity Reaction Status Date / Time Iodinated Contrast- Oral and AdvReac Intermediate NAUSEA Verified 12/12/17 00:33 IV Dye [Iodinated Contrast Media - IV Dye] Review of Systems Constitutional Denies chills, Denies fever(s), Denies lethargy and Denies weakness Eyes Denies change in vision, Denies eye discharge, Denies irritation and Denies loss of vision ENT Ears, Nose, Mouth, and Throat: Denies change in voice, Denies neck pain and Denies sore throat Cardiovascular Denies chest pain, Denies irregular heart rhythm, Denies lightheadedness, Denies palpitations, Reports dyspnea, Reports dyspnea on exertion and Denies orthopnea Respiratory Denies cough, Reports dyspnea, Reports dyspnea on exertion and Denies wheezing Gastrointestinal Gastrointestinal: Denies abdominal pain, Denies change in bowel habits, Denies diarrhea, Denies nausea and Denies vomiting Genitourinary Denies hematuria, Denies flank pain, Denies urinary incontinence and Denies urinary urgency Musculoskeletal Denies neck pain Integumentary/Breasts Denies pruritus, Denies erythema, Denies rash and Denies wounds Neurologic Denies confusion, Denies loss of vision and Denies weakness Psychiatric Denies anxiety, Denies confusion, Denies depression, Denies homicidal ideation and Denies suicidal ideation Endocrine Denies palpitations Hematologic/Lymphatic Denies easy bruising Allergic/Immunologic Denies wheezing [facility] Medical History Chronic back pain (Acute) Social History Smoking Status: Never smoker Social History Smoking Status: Never smoker Exam Narrative Exam Narrative: GENERAL: 48-year-old male appears stated age, in mild distress, no evidence of significant respiratory distress HEAD: Atraumatic. Normocephalic. No temporal or scalp tenderness. EYES: Pupils equal round and reactive. Extraocular motions intact. No scleral icterus. No injection or drainage. ENT: Nose without bleeding, purulent drainage or septal hematoma. Throat without erythema, tonsillar hypertrophy or exudate. Uvula midline. Airway patent. NECK: Trachea midline. No JVD or lymphadenopathy. Supple, nontender, no meningeal signs. CARDIOVASCULAR: Regular rate and rhythm without murmurs, gallops, or rubs. RESPIRATORY: Decreased breath sounds right base. No wheezes, rales, or rhonchi. No tachypnea or significant work of breathing GASTROINTESTINAL: Abdomen soft, non-tender, nondistended. No hepato- splenomegaly, or palpable masses. No guarding. EXTREMITIES: No clubbing, cyanosis, or edema. No joint tenderness, effusion, or edema noted. BACK: Nontender without deformity or crepitance. No flank tenderness. NEURO: AOx3. SKIN: No rash or erythema. Initial Vital Signs Initial Vital Signs: Vital Signs Temperature 98.4 F 03/03/19 15:45 Pulse Rate 64 03/03/19 15:45 Respiratory Rate 16 03/03/19 15:45 Blood Pressure 124/78 03/03/19 15:45 Pulse Oximetry 98 03/03/19 15:45 Course Orders Ordered: ED Orders 03/03/19 15:38 XR chest 2V Stat 03/03/19 15:40 B Type Natriuretic Peptide Stat Complete Blood Count AUTO DIFF Stat 03/03/19 16:20 Basic Metabolic Panel Stat Prothrombin Time INR Stat Consultations Consultation #1: Discussion with on-call liver transplant specialist, we discussed the mild presentation of this patient's dyspnea, reassuring lab work and chest x-ray which sounds relatively unchanged from prior. Patient requires no oxygen and is super therapeutic with Coumadin and an INR of 3.3. He is not a good candidate for a non emergent thoracentesis Vital Signs - 8 hr 03/03/19 15:45 03/03/19 16:27 03/03/19 17:50 Temperature 98.4 F Pulse Rate 64 59 L 58 L Respiratory Rate 16 16 16 Blood Pressure 124/78 Blood Pressure [Left Arm] 102/65 114/73 Pulse Oximetry 98 95 96 MDM - SOB/Dyspnea Lab Data Result diagrams: 03/03/19 15:40 03/03/19 16:20 Lab Results 03/03/19 03/03/19 03/03/19 Range/Units 15:40 16:20 16:20 WBC 4.7 (4.5-11.0) X10^3/uL RBC 3.79 L (4.5-5.9) X10^6/uL Hgb 11.4 L (13.5-17.5) g/dL Hct 34.3 L (41-53) % MCV 90.5 (80-100) fL MCH 30.1 (26-34) PG MCHC 33.2 (30-36) % RDW 18.7 H (11.6-14.8) % Plt Count 90 L (150-400) X10^3/uL Neut % (Auto) 66.3 (50-75) % Lymph % (Auto) 15.0 L (25-40) % [place] % (Auto) 12.5 (3-14) % Eos % (Auto) 5.9 H (2-4) % Baso % (Auto) 0.3 (0-2) % Neut # (Auto) 3100 (3039-2870) /uL Lymph # (Auto) 700 L (2538-5082) /uL [place] # (Auto) 600 (0-900) /uL Eos # (Auto) 300 (0-450) /uL Baso # (Auto) 0 (0-100) /uL PT 38.9 H (10.1-12.7) SECONDS INR 3.3 H (0.9-1.3) Sodium 135 L (137-145) mmol/L Potassium 4.5 (3.4-5.1) mmol/L Chloride 101 (98-107) mmol/L Carbon Dioxide 24 (22-32) mmol/L BUN 18 (9-20) mg/dL Creatinine 0.90 (0.66-1.25) mg/dL Estimated GFR > 60.0 (>60) mL/min BUN/Creatinine Ratio 20.0 (6-22) Glucose 172 H (70-100) mg/dL Calcium 8.9 (8.4-10.2) mg/dL B-Natriuretic Peptide < 100 (<100) Discharge Plan Departure Patient Disposition: Home Clinical Impression: Acute dyspnea, Pleural effusion Discharge Date/Time: 03/03/19 18:33 Interventions: ED Discharge Assessment Last Done: 03/03/19 18:32 Instructions: DI for Shortness of Breath Activity Restrictions/Additional Instructions: *You have been diagnosed with [shortness of breath, likely due to the known pleural effusion you have.] *What to do: *Take medications as directed: Please take an extra dose of Lasix daily for each of the next 3 days, please contact her primary care provider as well as the transplant team for follow-up *Follow up with your primary care provider in 2-3 days, call for an appointment. Let them know you were seen in the Emergency Department and that we ask that you be seen in follow up *Return to ER if you should have any new, worsening or concerning symptoms Prescriptions: No Action Fosamax Plus D 70 MG/2,800 UNITS tablet 1 tab PO WEEKLY Qty: 0 RF: 0 nadolol [Corgard] 80 MG tablet 80 mg PO DAILY Qty: 0 RF: 0 aspirin 81 MG tablet,delayed release (DR/EC) 81 mg PO DAILY Qty: 0 RF: 0 acetaminophen 500 mg Tablet 500 mg PO Q6H PRN (Reason: pain) Qty: 0 RF: 0 rifaximin [Xifaxan] 550 MG tablet 550 mg PO BID Qty: 0 RF: 0 furosemide 40 mg tablet 40 mg PO DAILY RF: 0 spironolactone [Aldactone] 100 mg tablet 100 mg PO DAILY RF: 0 ciprofloxacin HCl 500 mg tablet 500 mg PO DAILY RF: 0 warfarin 2 mg tablet 2 mg PO DAILY RF: 0 omeprazole 20 mg capsule,delayed release(DR/EC) 20 mg PO BID RF: 0 oxycodone 5 mg tablet 5 mg PO BID RF: 0 calcium carbonate 500 mg calcium (1,250 mg) Tablet,Chewable 500 mg PO BID RF: 0 Referrals: Brando Lucero MD [Primary Care Provider] -
[2019-03-03 18:32] VITALS: BP 132/75; PULSE 56; RESP 14; O2SAT 97
== END 2019-03-03 18:33 | disposition home or self-care (01) ==
PROVIDERS: Emergency Provider Emergency Medicine; PCP Internal Medicine
DX: R06.00 Dyspnea, unspecified (principal); J90 Pleural effusion, not elsewhere classified
CPT/HCPCS: 36591; 71046; 80048; 83880; 85025; 85610; 99283; 99284

== ENCOUNTER 2019-04-13 17:05 | Emergency (ER) | payer MEDICARE, OTHER, SELFPAY ==
[2019-04-13 17:45] VITALS: BP 109/70; PULSE 77; RESP 16; TEMP 36.7; O2SAT 97; BMI 30.4
[2019-04-13 18:33] VITALS: BP 129/85; PULSE 79; RESP 16; O2SAT 100
--- NOTE | 2019-04-13 18:34 | PC.NURSE ---
Patient had lumbar surgery on sunday. Reports pain has been manageable with pain medications. Denies fevers or chills. Patient reports swelling below incision into his scrotum and testicles. Patient has an occlusive dressing present to abd looks WNL. No redness noted. Patient surgeon called back while this writter was in the room. Surgeon reports patient had an anterior approach for his surgery and states that scrotal and testicular swelling is very normal for postop. ED provided with cell number for surgeon if any further questions.
--- NOTE | 2019-04-13 19:02 | ED_ITS ---
HPI - Wound/Laceration <MIRACLE Ureña - Last Filed: 04/13/19 21:14> General Chief Complaint: Wound/Laceration Stated Complaint: lumbar surgery x5 days ago. Has swelling below inc Time Seen by Provider: 04/13/19 18:39 Source: patient and family Mode of arrival: ambulatory Limitations: no limitations History of Present Illness HPI narrative: 48-year-old male who who is 5 days postop lumbar back surgery that was accessed through his abdomen, presents emergency department today complaining of scrotal swelling occurred today. He states he noticed it upon waking up. He denies any testicular pain, dysuria, urinary retention, hesitancy, penile discharge, erythema to the area, abdominal pain other than the surgical site, vomiting, chest pain, shortness of breath, fevers, chills, sy ncope, or calf pain. His surgeon, Dr. Latham was contacted by the RN in triage and stated that scrotal and lower abdominal edema post surgery was completely normal as cell lymphatic ducts are often disturbed during the surgery. Related Data Home Medications Medication Instructions Recorded Confirmed Fosamax Plus D 1 tab PO WEEKLY #0 tab 05/28/16 12/11/17 nadolol [Corgard] 80 mg PO DAILY #0 tab 05/28/16 03/03/19 aspirin 81 mg PO DAILY #0 06/19/16 12/11/17 acetaminophen 500 mg PO Q6H PRN #0 06/25/16 03/03/19 rifaximin [Xifaxan] 550 mg PO BID #0 09/28/16 12/11/17 calcium carbonate 500 mg PO BID 03/03/19 ciprofloxacin HCl 500 mg PO DAILY 03/03/19 03/03/19 furosemide 40 mg PO DAILY 03/03/19 03/03/19 omeprazole 20 mg PO BID 03/03/19 03/03/19 oxycodone 5 mg PO BID 03/03/19 03/03/19 spironolactone [Aldactone] 100 mg PO DAILY 03/03/19 03/03/19 warfarin 2 mg PO DAILY 03/03/19 Allergies Allergy/AdvReac Type Severity Reaction Status Date / Time Iodinated Contrast- Oral and AdvReac Intermediate NAUSEA Verified 12/12/17 00:33 IV Dye [Iodinated Contrast Media - IV Dye] Review of Systems <MIRACLE Ureña - Last Filed: 04/13/19 21:14> Review of Systems Narrative: REVIEW OF SYSTEMS: GENERAL: Denies fever or chills. HENT: No head trauma, hearing loss or sore throat. EYES: No loss of vision, double vision, eye pain, or irritation. CARDIOVASCULAR: No chest pain or syncope. RESPIRATORY: No shortness of breath or cough. GASTROINTESTINAL: No nausea, vomiting, diarrhea, or constipation. GENITOURINARY: Complains of scrotal swelling, see HPI. No flank pain or dysuria. MUSCULOSKELETAL: S/p back surgery with anterior access, see HPI. No weakness, saddle paresthesias, or deformities. INTEGUMENTARY: No rash, lesions, or pruritus. NEURO: No numbness, tingling, memory loss, or confusion. PSYCH: No behavior or mood changes. PFSH <MIRACLE Ureña - Last Filed: 04/13/19 21:14> Medical History Chronic back pain (Acute) Social History Smoking Status: Never smoker Social History Smoking Status: Never smoker Exam <MIRACLE Uerña - Last Filed: 04/13/19 21:14> Initial Vital Signs Initial Vital Signs: Vital Signs Temperature 98.1 F 04/13/19 17:45 Pulse Rate 77 04/13/19 17:45 Respiratory Rate 16 04/13/19 17:45 Blood Pressure 109/70 04/13/19 17:45 Pulse Oximetry 97 04/13/19 17:45 PHYSICAL EXAMINATION: GENERAL: Well groomed, alert, and cooperative. Answers questions promptly and appropriately. Vital signs noted. HENT: Normocephalic, atraumatic. EYES: Symmetrical, sclera white, no periorbital swelling. RESPIRATORY: Normal respiratory rate, trachea midline, airway patent. No stridor, nasal flaring or accessory muscle use. ABD: Abdomen nontender except for area directly over incision site. No surrounding erythema, slight diffuse ecchymosis noted around incision site. : Minor diffuse swelling to scrotal sac and head of penis, no erythema, no discharge, scrotum nontender with palpation. No lumps or masses to scrotum. MUSCULOSKELETAL: Limited lumbar range of motion due to pain from past surgery. Equal tone and mass bilaterally. EXTREMITIES: CMS intact. No pedal edema. SKIN: Warm, dry, soft, appropriate color for ethnicity. No lesions, rashes, or wounds. NEURO: Alert and Oriented X 3. No sensory deficits. PSYCH: Appropriate affect and mood. <Evelyn Raman DO - Last Filed: 04/14/19 07:56> Initial Vital Signs Initial Vital Signs: Vital Signs Temperature 98.1 F 04/13/19 17:45 Pulse Rate 77 04/13/19 17:45 Respiratory Rate 16 04/13/19 17:45 Blood Pressure 109/70 04/13/19 17:45 Pulse Oximetry 97 04/13/19 17:45 Course <MIRACLE Ureña - Last Filed: 04/13/19 21:14> Course Course Narrative: The patient had the surgeon name and number, the surgeon was contacted by the triage nurse reported that scrotal swelling was a normal results of the surgery as lymphatic ducts are disturbed during the anterior access to lumbar surgery. Vital Signs Vital signs: Vital Signs - 8 hr 04/13/19 17:45 04/13/19 18:33 Temperature 98.1 F Pulse Rate 77 79 Respiratory Rate 16 16 Blood Pressure 109/70 Blood Pressure [Left Arm] 129/85 Pulse Oximetry 97 100 <Evelyn Raman DO - Last Filed: 04/14/19 07:56> Vital Signs Vital signs: Vital Signs - 8 hr 04/13/19 17:45 04/13/19 18:33 Temperature 98.1 F Pulse Rate 77 79 Respiratory Rate 16 16 Blood Pressure 109/70 Blood Pressure [Left Arm] 129/85 Pulse Oximetry 97 100 [facility] - Wound/Laceration <MIRACLE Ureña - Last Filed: 04/13/19 21:14> Medical Records Attestation: I reviewed the patient's medical records. Lab Data Attestation: I reviewed the patient's lab results. [facility] Narrative Medical decision making narrative: After assessment, I agree that this is benign swelling as a result of the surgery. Have very little concern for infection due to lack of increased warmth, lack of erythema, lack of tenderness, lack of purulent discharge, and lack of systemic symptoms such as fever. Very little concern for other complications due to lack of abdominal pain, vomiting, dysuria, or hesitancy. Strict return precautions given and follow-up instructions discussed. Discharge Plan Departure Patient Disposition: Home Clinical Impression: Swelling Discharge Date/Time: 04/13/19 19:07 Activity Restrictions/Additional Instructions: Thank you for entrusting me with your care today. As discussed, I agree with the surgeon, the swelling appears to be a normal occurrence after the surgery. Please monitor for signs of infection such as redness, fevers, increased temperature to the skin, a severe increase in pain, or general malaise-if these symptoms occur please return to the emergency department immediately. Additionally, return to the ER if you develop chest pain, shortness of breath, pain in your calf, or other concerning symptoms. Follow up with your surgeon as scheduled. Prescriptions: No Action Fosamax Plus D 70 MG/2,800 UNITS tablet 1 tab PO WEEKLY Qty: 0 RF: 0 nadolol [Corgard] 80 MG tablet 80 mg PO DAILY Qty: 0 RF: 0 aspirin 81 MG tablet,delayed release (DR/EC) 81 mg PO DAILY Qty: 0 RF: 0 acetaminophen 500 mg Tablet 500 mg PO Q6H PRN (Reason: pain) Qty: 0 RF: 0 rifaximin [Xifaxan] 550 MG tablet 550 mg PO BID Qty: 0 RF: 0 furosemide 40 mg tablet 40 mg PO DAILY RF: 0 spironolactone [Aldactone] 100 mg tablet 100 mg PO DAILY RF: 0 ciprofloxacin HCl 500 mg tablet 500 mg PO DAILY RF: 0 warfarin 2 mg tablet 2 mg PO DAILY RF: 0 omeprazole 20 mg capsule,delayed release(DR/EC) 20 mg PO BID RF: 0 oxycodone 5 mg tablet 5 mg PO BID RF: 0 calcium carbonate 500 mg calcium (1,250 mg) Tablet,Chewable 500 mg PO BID RF: 0
== END 2019-04-13 19:07 | disposition home or self-care (01) ==
PROVIDERS: Emergency Provider Nurse Practitioner
DX: N50.89 Other specified disorders of the male genital organs (principal)
CPT/HCPCS: 99282; 99283

== ENCOUNTER 2019-04-27 13:31 | Emergency (ER) | payer MEDICARE, OTHER, SELFPAY ==
[2019-04-27 13:35] VITALS: BP 113/69; PULSE 66; RESP 15; TEMP 36.4; O2SAT 97; BMI 30.4
--- NOTE | 2019-04-27 13:43 | DI.RAD.S_ITS ---
PROCEDURE: XR CHEST 2V INDICATIONS: shortness of breath TECHNIQUE: 2 views of the chest were acquired. COMPARISON: [facility], CR, XR CHEST 1V, 12/21/2017, 21:20. [facility], CR, XR CHEST 2V, 03/03/2019, 16:05. FINDINGS: Surgical changes and devices: None. Lungs and pleura: There is a persistent moderate right pleural effusion with right basilar compressive atelectasis or consolidation. Left lung is clear. No evidence of pneumothorax. Mediastinum: Mediastinal contours are normal. Heart size is normal. Bones and chest wall: No suspicious bony abnormalities. Soft tissues appear unremarkable. IMPRESSION: 1. Persistent moderate right pleural effusion with right basilar compressive atelectasis or consolidation. Dictated by: Xiang Aguirre M.D. on 04/27/2019 at 13:26 Approved by: Xiang Aguirre M.D. on 04/27/2019 at 13:27
--- NOTE | 2019-04-27 14:11 | RT ---
Patient complains of feeling as if he cannot get a full breath. BBS clear, no wheeze auscultated. Sats 99% on room air, RR 12. Patient states that a week or so ago he was told he had some water on his lungs for which they gave him Lasix and it completely went away. At that time, he felt pressure in the base of his lungs when he tried to get a deep breath. At this time, he says he feels it in the center of his chest. EKG was drone and given to MD Fowler. Gave patient a breathing treatment as he said he only felt this tightness on inhalation. After the breathing treatment, he felt he could take a better deep breath. BBS were still clear, RR still 12. Gave patient another IS as he left his previous one at the hospital. Instructed him on splint and munoz coughing as he is still having back discomfort and wearing a back brace to aid in this. Patient admits he has not been as mobile as he usually is so discussed importance of utilizing splint and munoz coughing in conjunction with the IS. Will await findings of xrays and labs and any further MD orders.
[2019-04-27 14:12] VITALS: PULSE 76; RESP 12; O2SAT 99
[2019-04-27] MEDS: ALBUTEROL 2.5 MG/3 ML NEB (ADULT) INH (14:18)
[2019-04-27 14:49] LABS: Add Manual Diff / Slide Review NO; Basophils Absolute Auto 0 /uL (0-100); Basophils Percent Auto 0.7 % (0-2); Eosinophils Absolute Auto 200 /uL (0-450); Eosinophils Percent Auto 6.2 % (2-4); Hematocrit 29.3 % (41-53); Hemoglobin 9.8 g/dL (13.5-17.5); Lymphocytes Absolute Auto 700 /uL (1100-4500); Lymphocytes Percent Auto 19.1 % (25-40); Mean Corpuscular HGB Conc 33.6 % (30-36); Mean Corpuscular Hemoglobin 28.6 PG (26-34); Mean Corpuscular Volume 85.2 fL (80-100); Monocytes Absolute Auto 700 /uL (0-900); Monocytes Percent Auto 18.9 % (3-14); Neutrophils Absolute Auto 2000 /uL (1500-7000); Neutrophils Percent Auto 55.1 % (50-75); Platelet Count 135 X10^3/uL (150-400); Red Blood Cell Count 3.43 X10^6/uL (4.5-5.9); Red Cell Distribution Width 16.6 % (11.6-14.8); White Blood Cell Count 3.7 X10^3/uL (4.5-11.0)
[2019-04-27 15:02] LABS: Alanine Aminotransferase 42 IU/L (21-72); Albumin 3.3 g/dL (3.5-5.0); Albumin Globulin Ratio 0.9 (1.0-2.8); Alkaline Phosphatase 411 U/L (38-126); Aspartate Aminotransferase 96 IU/L (17-59); BUN Creatinine Ratio 18.8 (6-22); Bilirubin Total 1.8 mg/dL (0.2-1.3); Blood Urea Nitrogen 15 mg/dL (9-20); Calcium 9.2 mg/dL (8.4-10.2); Carbon Dioxide 25 mmol/L (22-32); Chloride 102 mmol/L (98-107); Creatine Kinase 45 U/L (55-170); Estimated Glomerular Filt Rate > 60.0 mL/min (>60); Globulin 3.5 g/dL (1.7-4.1); Glucose 98 mg/dL (70-100); HEMOLYSIS < 15 (0-50); Lactate (Lactic Acid) 1.8 mmol/L (0.7-2.1); Potassium 3.8 mmol/L (3.4-5.1); Sodium 136 mmol/L (137-145); Total Protein 6.8 g/dL (6.3-8.2)
[2019-04-27 15:13] LABS: Troponin I < 0.012 ng/mL (0.01-0.034)
[2019-04-27 15:18] LABS: B Type Natriuretic Peptide < 100 (<100)
[2019-04-27 15:41] LABS: INR 2.9 (0.9-1.3); Prothrombin Time 34.4 SECONDS (10.1-12.7)
[2019-04-27 16:13] VITALS: BP 127/76; PULSE 65; O2SAT 97
--- NOTE | 2019-04-27 16:24 | DI.CT.S_ITS ---
PROCEDURE: CT ANGIO CHEST PE PROTOCOL INDICATIONS: shortness of breath TECHNIQUE: After the administration of intravenous contrast, 2 mm thick sections acquired from the pulmonary apices to the posterior costophrenic angles. 3-dimensional maximum intensity projection (MIP) coronal and sagittal reformats were then acquired through the thorax. For radiation dose reduction, the following was used: automated exposure control, adjustment of mA and/or kV according to patient size. COMPARISON: [facility], CT, ABDOMEN/PELVIS WITH CONTRAST, 06/19/2016, 23:32. [facility], CT, CHEST/ABD/PEL WITH CONTRAST, 06/25/2016, 23:30. FINDINGS: Image quality: Excellent. Pulmonary arteries: Pulmonary arteries are normal in size, and demonstrate no intraluminal filling defects to suggest central pulmonary embolism. Lungs and pleura: Large right pleural effusion with compressive atelectasis of the right lower lobe. Mild mediastinal shift to the right. Central and peripheral airways are patent. Mediastinum: Heart size is normal, without pericardial effusion. No mediastinal or hilar adenopathy. Thoracic aorta is normal in caliber and enhancement. Esophagus is normal in caliber, without hiatal hernia. Bones and chest wall: No suspicious bony lesions. Ribs and thoracic spine appear intact throughout. Thyroid gland is unremarkable. No axillary or supraclavicular adenopathy. Abdomen: Again noted is a remarkably abnormal appearance of the liver. There is extensive cirrhotic change with innumerable micronodules and a large spherical nodular region in the right lobe. There are innumerable densities present in the peritoneum and retroperitoneal region which likely represent varicosities. Lymphadenopathy is not excluded. Splenomegaly. A small amount of upper abdominal ascites. IMPRESSION: 1. No evidence of pulmonary emboli. 2. Large right pleural effusion with right lower lobe atelectasis and mild mediastinal shift to the right. 3. Remarkably abnormal appearance of liver with extensive sclerotic change and nodularity. 4. Splenomegaly. 5. Innumerable densities are present in the peritoneal space and retroperitoneal space. Comment: Consider multiphase CT of the abdomen at a later date to further evaluate the liver and numerous peritoneal and retroperitoneal densities. Dictated by: Luis A Wall M.D. on 04/27/2019 at 18:02 Approved by: Luis A Wall M.D. on 04/27/2019 at 18:14
[2019-04-27] MEDS: ONDANSETRON 4 MG/2 ML INJ IV (16:49)
[2019-04-27] MEDS: diphenhydrAMINE 50 MG/ML VIAL IV (16:49)
[2019-04-27 18:05] VITALS: BP 121/82; PULSE 67; RESP 22; O2SAT 96
[2019-04-27 20:27] VITALS: BP 129/77; PULSE 64; RESP 16; O2SAT 97
--- NOTE | 2019-04-27 20:42 | ED.SOB ---
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 He states he feels short of breath when he lays flat since Sunday. He has tried doubling his Lasix as well knowledge is suggested. He states it improved slightly but not greatly. He denies any chest pain, fevers, nausea vomiting or diarrhea. He does state that he had surgery on April 08 at [facility]. He states this surgeries on his back, anterior approach through his lower abdomen. He states that his shortness of breath is improved by sitting up. He has not followed up with PCP, piling setter or transplant commercial artist. Related Data Home Medications Medication Instructions Recorded Confirmed Fosamax Plus D 1 tab PO WEEKLY #0 tab 05/28/16 12/11/17 nadolol [Corgard] 80 mg PO DAILY #0 tab 05/28/16 03/03/19 aspirin 81 mg PO DAILY #0 06/19/16 12/11/17 acetaminophen 500 mg PO Q6H PRN #0 06/25/16 03/03/19 rifaximin [Xifaxan] 550 mg PO BID #0 09/28/16 12/11/17 calcium carbonate 500 mg PO BID 03/03/19 ciprofloxacin HCl 500 mg PO DAILY 03/03/19 03/03/19 furosemide 40 mg PO DAILY 03/03/19 03/03/19 omeprazole 20 mg PO BID 03/03/19 03/03/19 oxycodone 5 mg PO BID 03/03/19 03/03/19 spironolactone [Aldactone] 100 mg PO DAILY 03/03/19 03/03/19 warfarin 2 mg PO DAILY 03/03/19 Allergies Allergy/AdvReac Type Severity Reaction Status Date / Time Iodinated Contrast- Oral and AdvReac Intermediate NAUSEA Verified 12/12/17 00:33 IV Dye [Iodinated Contrast Media - IV Dye] Review of Systems <EDGAR Kirby - Last Filed: 04/27/19 20:52> Review of Systems Narrative: GENERAL: Denies chills, fatigue, malaise, fever, sweats. HEENT: Denies sinus pain, ear pain, sore throat, difficulty swallowing, dizziness. RESPIRATORY: See HPI CARDIOVASCULAR: Denies chest pain, palpitations, orthopnea, edema, GASTROINTESTINAL: Denies nausea, vomiting, abdominal pain, diarrhea, constipation, melena. : Denies dysuria, frequency, incontinence, hematuria, urinary retention. MUSCULOSKELETAL: denies weakness, joint pain, or bony pain SKIN: Denies rash, skin lesions, or other NEUROLOGIC: Denies weakness, headache, numbness, change in speech, confusion, seizures, incoordination. PSYCHIATRIC: No concerning psychosocial issues. 12 point review of systems is negative except for those stated above PFSH <EDGAR Kirby - Last Filed: 04/27/19 20:52> Medical History Chronic back pain (Acute) Social History Smoking Status: Never smoker Social History Smoking Status: Never smoker Exam <EDGAR Kirby - Last Filed: 04/27/19 20:52> Narrative Exam Narrative: GENERAL: Chronically ill appearing male lying on stretcher HEAD: Atraumatic. Normocephalic. No temporal or scalp tenderness. EYES: Pupils equal round and reactive. Extraocular motions intact. No scleral icterus. No injection or drainage. ENT: Nose without bleeding, purulent drainage or septal hematoma. Throat without erythema, tonsillar hypertrophy or exudate. Uvula midline. Airway patent. NECK: Trachea midline. No JVD or lymphadenopathy. Supple, nontender, no meningeal signs. CARDIOVASCULAR: Regular rate and rhythm without murmurs, gallops, or rubs. RESPIRATORY: Right-sided decreased breath sounds to auscultation. No wheezes, rales, or rhonchi. No tachypnea. No retractions. No accessory muscle use. GASTROINTESTINAL: Abdomen soft, non-tender, nondistended. Active bowel sounds all 4 quadrants. EXTREMITIES: No clubbing, cyanosis, or edema. No joint tenderness, effusion, or edema noted. BACK: Nontender without deformity or crepitance. No flank tenderness. NEURO: AOx3. SKIN: No rash or erythema. Initial Vital Signs Initial Vital Signs: Vital Signs Temperature 97.5 F L 04/27/19 13:35 Pulse Rate 66 04/27/19 13:35 Respiratory Rate 15 04/27/19 13:35 Blood Pressure 113/69 04/27/19 13:35 Pulse Oximetry 97 04/27/19 13:35 <Sandip Fowler DO - Last Filed: 04/28/19 15:49> Initial Vital Signs Initial Vital Signs: Vital Signs Temperature 97.5 F L 04/27/19 13:35 Pulse Rate 66 04/27/19 13:35 Respiratory Rate 15 04/27/19 13:35 Blood Pressure 113/69 04/27/19 13:35 Pulse Oximetry 97 04/27/19 13:35 Course <CHARLINE KirbyBC - Last Filed: 04/27/19 20:52> Orders Ordered: Discontinued Medications Albuterol (Ventolin) 2.5 mg INH NOW ONE Stop: 04/27/19 14:12 Last Admin: 04/27/19 14:18 Dose: 2.5 mg Documented by: YESICA Diphenhydramine HCl (Benadryl) 50 mg IV NOW ONE Stop: 04/27/19 16:33 Last Admin: 04/27/19 16:49 Dose: 50 mg Documented by: VEENA Ondansetron HCl (Zofran) 4 mg IV NOW ONE Stop: 04/27/19 16:33 Last Admin: 04/27/19 16:49 Dose: 4 mg Documented by: VEENA Vital Signs Vital signs: Vital Signs - 8 hr 04/27/19 13:35 04/27/19 14:12 04/27/19 16:13 Temperature 97.5 F L Pulse Rate 66 76 65 Respiratory Rate 15 12 Blood Pressure 113/69 Blood Pressure [Left Arm] 127/76 Pulse Oximetry 97 99 97 04/27/19 18:05 04/27/19 20:27 Temperature Pulse Rate 67 64 Respiratory Rate 22 16 Blood Pressure Blood Pressure [Left Arm] 121/82 129/77 Pulse Oximetry 96 97 <Sandip Fowler DO - Last Filed: 04/28/19 15:49> Orders Ordered: Discontinued Medications Albuterol (Ventolin) 2.5 mg INH NOW ONE Stop: 04/27/19 14:12 Last Admin: 04/27/19 14:18 Dose: 2.5 mg Documented by: YESICA Diphenhydramine HCl (Benadryl) 50 mg IV NOW ONE Stop: 04/27/19 16:33 Last Admin: 04/27/19 16:49 Dose: 50 mg Documented by: VEENA Ondansetron HCl (Zofran) 4 mg IV NOW ONE Stop: 04/27/19 16:33 Last Admin: 04/27/19 16:49 Dose: 4 mg Documented by: VEENA Vital Signs Vital signs: Vital Signs - 8 hr 04/27/19 13:35 04/27/19 14:12 04/27/19 16:13 Temperature 97.5 F L Pulse Rate 66 76 65 Respiratory Rate 15 12 Blood Pressure 113/69 Blood Pressure [Left Arm] 127/76 Pulse Oximetry 97 99 97 04/27/19 18:05 04/27/19 20:27 Temperature Pulse Rate 67 64 Respiratory Rate 22 16 Blood Pressure Blood Pressure [Left Arm] 121/82 129/77 Pulse Oximetry 96 97 MDM - SOB/Dyspnea <VIRGINIA Kirby-KEITH - Last Filed: 04/27/19 20:52> Lab Data Result diagrams: 04/27/19 14:30 04/27/19 14:30 Labs: Lab Results 04/27/19 04/27/19 04/27/19 Range/Units 14:30 14:30 14:30 WBC 3.7 L (4.5-11.0) X10^3/uL RBC 3.43 L (4.5-5.9) X10^6/uL Hgb 9.8 L (13.5-17.5) g/dL Hct 29.3 L (41-53) % MCV 85.2 (80-100) fL MCH 28.6 (26-34) PG MCHC 33.6 (30-36) % RDW 16.6 H (11.6-14.8) % Plt Count 135 L (150-400) X10^3/uL Neut % (Auto) 55.1 (50-75) % Lymph % (Auto) 19.1 L (25-40) % Dickens % (Auto) 18.9 H (3-14) % Eos % (Auto) 6.2 H (2-4) % Baso % (Auto) 0.7 (0-2) % Neut # (Auto) 2000 (4828-7553) /uL Lymph # (Auto) 700 L (5918-4068) /uL Dickens # (Auto) 700 (0-900) /uL Eos # (Auto) 200 (0-450) /uL Baso # (Auto) 0 (0-100) /uL PT (10.1-12.7) SECONDS INR (0.9-1.3) Sodium 136 L (137-145) mmol/L Potassium 3.8 (3.4-5.1) mmol/L Chloride 102 (98-107) mmol/L Carbon Dioxide 25 (22-32) mmol/L BUN 15 (9-20) mg/dL Creatinine 0.80 (0.66-1.25) mg/dL Estimated GFR > 60.0 (>60) mL/min BUN/Creatinine Ratio 18.8 (6-22) Glucose 98 (70-100) mg/dL Lactate 1.8 (0.7-2.1) mmol/L Calcium 9.2 (8.4-10.2) mg/dL Total Bilirubin 1.8 H (0.2-1.3) mg/dL AST 96 H (17-59) IU/L ALT 42 (21-72) IU/L Alkaline Phosphatase 411 H (38-126) U/L Total Creatine Kinase (55-170) U/L CK-MB (CK-2) CK-MB (CK-2) Rel Index Troponin I (0.01-0.034) ng/mL B-Natriuretic Peptide (<100) Total Protein 6.8 (6.3-8.2) g/dL Albumin 3.3 L (3.5-5.0) g/dL Globulin 3.5 (1.7-4.1) g/dL Albumin/Globulin Ratio 0.9 L (1.0-2.8) 04/27/19 04/27/19 04/27/19 Range/Units 14:30 14:30 14:30 WBC (4.5-11.0) X10^3/uL RBC (4.5-5.9) X10^6/uL Hgb (13.5-17.5) g/dL Hct (41-53) % MCV (80-100) fL MCH (26-34) PG MCHC (30-36) % RDW (11.6-14.8) % Plt Count (150-400) X10^3/uL Neut % (Auto) (50-75) % Lymph % (Auto) (25-40) % Dickens % (Auto) (3-14) % Eos % (Auto) (2-4) % Baso % (Auto) (0-2) % Neut # (Auto) (1879-9154) /uL Lymph # (Auto) (2898-5552) /uL Dickens # (Auto) (0-900) /uL Eos # (Auto) (0-450) /uL Baso # (Auto) (0-100) /uL PT 34.4 H (10.1-12.7) SECONDS INR 2.9 H (0.9-1.3) Sodium (137-145) mmol/L Potassium (3.4-5.1) mmol/L Chloride (98-107) mmol/L Carbon Dioxide (22-32) mmol/L BUN (9-20) mg/dL Creatinine (0.66-1.25) mg/dL Estimated GFR (>60) mL/min BUN/Creatinine Ratio (6-22) Glucose (70-100) mg/dL Lactate (0.7-2.1) mmol/L Calcium (8.4-10.2) mg/dL Total Bilirubin (0.2-1.3) mg/dL AST (17-59) IU/L ALT (21-72) IU/L Alkaline Phosphatase (38-126) U/L Total Creatine Kinase 45 L (55-170) U/L CK-MB (CK-2) TNP CK-MB (CK-2) Rel Index TNP Troponin I < 0.012 (0.01-0.034) ng/mL B-Natriuretic Peptide < 100 (<100) Total Protein (6.3-8.2) g/dL Albumin (3.5-5.0) g/dL Globulin (1.7-4.1) g/dL Albumin/Globulin Ratio (1.0-2.8) Urine Dip Bedside Urine Glucose Negative Bedside Urine Bilirubin - Negative Bedside Urine Ketone - Negative Urine Specific [place] 1.015 Bedside Urine Occult Blood - Negative Bedside Urine pH 6.5 Bedside Urine Protein +/- 15 Bedside Urine Urobilinogen +/- 1mg Bedside Urine Nitrite - Negative Bedside Urine Leukocytes - Negative Esterase Imaging Data Chest CT a: Radiologist's impression: [address] [address] [address] Scan Report Signed Patient: Malik Morales JMR#: [id number] : 1970Acct:[id number] Age/Sex: 48 / MDate of Service: 04/27/19 Loc: ED Accession Number: [id number] Procedure: CT angio chest PE protocol Ordering Provider: Rosa Guzman PROCEDURE: CT ANGIO CHEST PE PROTOCOL INDICATIONS: shortness of breath TECHNIQUE: After the administration of intravenous contrast, 2 mm thick sections acquired from the pulmonary apices to the posterior costophrenic angles. 3-dimensional maximum intensity projection (MIP) coronal and sagittal reformats were then acquired through the thorax. For radiation dose reduction, the following was used: automated exposure control, adjustment of mA and/or kV according to patient size. COMPARISON: [facility], CT, ABDOMEN/PELVIS WITH CONTRAST, 06/19/2016, 23:32. [facility], CT, CHEST/ABD/PEL WITH CONTRAST, 06/25/2016, 23:30. FINDINGS: Image quality: Excellent. Pulmonary arteries: Pulmonary arteries are normal in size, and demonstrate no intraluminal filling defects to suggest central pulmonary embolism. Lungs and pleura: Large right pleural effusion with compressive atelectasis of the right lower lobe. Mild mediastinal shift to the right. Central and peripheral airways are patent. Mediastinum: Heart size is normal, without pericardial effusion. No mediastinal or hilar adenopathy. Thoracic aorta is normal in caliber and enhancement. Esophagus is normal in caliber, without hiatal hernia. Bones and chest wall: No suspicious bony lesions. Ribs and thoracic spine appear intact throughout. Thyroid gland is unremarkable. No axillary or supraclavicular adenopathy. Abdomen: Again noted is a remarkably abnormal appearance of the liver. There is extensive cirrhotic change with innumerable micronodules and a large spherical nodular region in the right lobe. There are innumerable densities present in the peritoneum and retroperitoneal region which likely represent varicosities. Lymphadenopathy is not excluded. Splenomegaly. A small amount of upper abdominal ascites. IMPRESSION: 1. No evidence of pulmonary emboli. 2. Large right pleural effusion with right lower lobe atelectasis and mild mediastinal shift to the right. 3. Remarkably abnormal appearance of liver with extensive sclerotic change and nodularity. 4. Splenomegaly. 5. Innumerable densities are present in the peritoneal space and retroperitoneal space. Comment: Consider multiphase CT of the abdomen at a later date to further evaluate the liver and numerous peritoneal and retroperitoneal densities. Dictated by: Luis A Wall M.D. on 04/27/2019 at 18:02 Approved by: Luis A Wall M.D. on 04/27/2019 at 18:14 Chest x-ray: Radiologist's impression: [place] [address] XRay Report Signed Patient: Malik Morales R#: [id number] : 1970Acct:[id number] Age/Sex: 48 / MDate of Service: 04/27/19 Loc: ED Accession Number: [id number] Procedure: XR chest 2V Ordering Provider: Sandip Fowler D.O. PROCEDURE: XR CHEST 2V INDICATIONS: shortness of breath TECHNIQUE: 2 views of the chest were acquired. COMPARISON: [facility], CR, XR CHEST 1V, 12/21/2017, 21:20. [facility], CR, XR CHEST 2V, 03/03/2019, 16:05. FINDINGS: Surgical changes and devices: None. Lungs and pleura: There is a persistent moderate right pleural effusion with right basilar compressive atelectasis or consolidation. Left lung is clear. No evidence of pneumothorax. Mediastinum: Mediastinal contours are normal. Heart size is normal. Bones and chest wall: No suspicious bony abnormalities. Soft tissues appear unremarkable. IMPRESSION: 1. Persistent moderate right pleural effusion with right basilar compressive atelectasis or consolidation. Dictated by: Xiang Aguirre M.D. on 04/27/2019 at 13:26 Approved by: Xiang Aguirre M.D. on 04/27/2019 at 13:27 ECG Data Attestation: I personally reviewed and interpreted this ECG as follows: Interpretation: Sinus rhythm. Ventricular rate 65. No ST elevation or depression. No ectopy noted. A p.r. interval 160 QRS duration 106 MDM Narrative Medical decision making narrative: The patient is a 48-year-old male with history of PSC and subsequent ascites who presents with a chief complaint of shortness of breath. He is noted to have a consistent right-sided pleural effusion versus atelectasis. Given the patient's postoperative status in complaints of shortness of breath, I did obtain a CT 8 help rule out a blood clot. Also noted his right-sided pleural effusion. His BNP is negative, his troponin is negative at this point time. I did obtain records from his piling setter, who we visited on May 13. He was started on a course of Levaquin in order to rule out an underlying pneumonia. He states this did not help. 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 The patient has no tachypnea, good oxygenation and is hemodynamically stable in the emergency department. He is on Coumadin, so his INR is 2.9. Thus he is not a good candidate for thoracentesis at this point time, especially given that he is clinically stable. I did speak with the patient's transplant commercial artist at the [facility], Dr. Kirby who suggested not increasing his Lasix. He encouraged follow-up with pulmonology. I offered patient a piling setter and speak with them prior to discharge, but the patient stated he would have rather do that and be able to leave. I discussed return precautions the emergency department cleaning severe shortness of breath etc. Discussed the importance of follow-up with his PCP as well as pulmonology. Patient states understanding and has no questions or concerns. He states understanding return precautions as well as follow-up care. He states he is very comfortable going home at this point time. <Sandip Fowler, - Last Filed: 04/28/19 15:49> Lab Data Labs: Lab Results 04/27/19 04/27/19 04/27/19 Range/Units 14:30 14:30 14:30 WBC 3.7 L (4.5-11.0) X10^3/uL RBC 3.43 L (4.5-5.9) X10^6/uL Hgb 9.8 L (13.5-17.5) g/dL Hct 29.3 L (41-53) % MCV 85.2 (80-100) fL MCH 28.6 (26-34) PG MCHC 33.6 (30-36) % RDW 16.6 H (11.6-14.8) % Plt Count 135 L (150-400) X10^3/uL Neut % (Auto) 55.1 (50-75) % Lymph % (Auto) 19.1 L (25-40) % Dickens % (Auto) 18.9 H (3-14) % Eos % (Auto) 6.2 H (2-4) % Baso % (Auto) 0.7 (0-2) % Neut # (Auto) 2000 (8430-6155) /uL Lymph # (Auto) 700 L (6723-2361) /uL Dickens # (Auto) 700 (0-900) /uL Eos # (Auto) 200 (0-450) /uL Baso # (Auto) 0 (0-100) /uL PT (10.1-12.7) SECONDS INR (0.9-1.3) Sodium 136 L (137-145) mmol/L Potassium 3.8 (3.4-5.1) mmol/L Chloride 102 (98-107) mmol/L Carbon Dioxide 25 (22-32) mmol/L BUN 15 (9-20) mg/dL Creatinine 0.80 (0.66-1.25) mg/dL Estimated GFR > 60.0 (>60) mL/min BUN/Creatinine Ratio 18.8 (6-22) Glucose 98 (70-100) mg/dL Lactate 1.8 (0.7-2.1) mmol/L Calcium 9.2 (8.4-10.2) mg/dL Total Bilirubin 1.8 H (0.2-1.3) mg/dL AST 96 H (17-59) IU/L ALT 42 (21-72) IU/L Alkaline Phosphatase 411 H (38-126) U/L Total Creatine Kinase (55-170) U/L CK-MB (CK-2) CK-MB (CK-2) Rel Index Troponin I (0.01-0.034) ng/mL B-Natriuretic Peptide (<100) Total Protein 6.8 (6.3-8.2) g/dL Albumin 3.3 L (3.5-5.0) g/dL Globulin 3.5 (1.7-4.1) g/dL Albumin/Globulin Ratio 0.9 L (1.0-2.8) 04/27/19 04/27/19 04/27/19 Range/Units 14:30 14:30 14:30 WBC (4.5-11.0) X10^3/uL RBC (4.5-5.9) X10^6/uL Hgb (13.5-17.5) g/dL Hct (41-53) % MCV (80-100) fL MCH (26-34) PG MCHC (30-36) % RDW (11.6-14.8) % Plt Count (150-400) X10^3/uL Neut % (Auto) (50-75) % Lymph % (Auto) (25-40) % Dickens % (Auto) (3-14) % Eos % (Auto) (2-4) % Baso % (Auto) (0-2) % Neut # (Auto) (2709-3178) /uL Lymph # (Auto) (1090-2743) /uL Dickens # (Auto) (0-900) /uL Eos # (Auto) (0-450) /uL Baso # (Auto) (0-100) /uL PT 34.4 H (10.1-12.7) SECONDS INR 2.9 H (0.9-1.3) Sodium (137-145) mmol/L Potassium (3.4-5.1) mmol/L Chloride (98-107) mmol/L Carbon Dioxide (22-32) mmol/L BUN (9-20) mg/dL Creatinine (0.66-1.25) mg/dL Estimated GFR (>60) mL/min BUN/Creatinine Ratio (6-22) Glucose (70-100) mg/dL Lactate (0.7-2.1) mmol/L Calcium (8.4-10.2) mg/dL Total Bilirubin (0.2-1.3) mg/dL AST (17-59) IU/L ALT (21-72) IU/L Alkaline Phosphatase (38-126) U/L Total Creatine Kinase 45 L (55-170) U/L CK-MB (CK-2) TNP CK-MB (CK-2) Rel Index TNP Troponin I < 0.012 (0.01-0.034) ng/mL B-Natriuretic Peptide < 100 (<100) Total Protein (6.3-8.2) g/dL Albumin (3.5-5.0) g/dL Globulin (1.7-4.1) g/dL Albumin/Globulin Ratio (1.0-2.8) Urine Dip Bedside Urine Glucose Negative Bedside Urine Bilirubin - Negative Bedside Urine Ketone - Negative Urine Specific [place] 1.015 Bedside Urine Occult Blood - Negative Bedside Urine pH 6.5 Bedside Urine Protein +/- 15 Bedside Urine Urobilinogen +/- 1mg Bedside Urine Nitrite - Negative Bedside Urine Leukocytes - Negative Esterase Discharge Plan Departure Patient Disposition: Home Clinical Impression: Pleural effusion, Breath shortness Discharge Date/Time: 04/27/19 20:30 Instructions: DI for Shortness of Breath, How to Manage Shortness of Breath, DI for Pleural Effusion Activity Restrictions/Additional Instructions: I spoke with Dr. Kirby from [facility]. He suggests a follow-up with pulmonology. Imaging from today shows a consistent right pleural effusion Please follow up with pulmonology as well as your primary care provider. Please come back to the emergency department for any emergent shortness of breath, concern of heart attack or stroke today shows a consistent Prescriptions: No Action Fosamax Plus D 70 MG/2,800 UNITS tablet 1 tab PO WEEKLY Qty: 0 RF: 0 nadolol [Corgard] 80 MG tablet 80 mg PO DAILY Qty: 0 RF: 0 aspirin 81 MG tablet,delayed release (DR/EC) 81 mg PO DAILY Qty: 0 RF: 0 acetaminophen 500 mg Tablet 500 mg PO Q6H PRN (Reason: pain) Qty: 0 RF: 0 rifaximin [Xifaxan] 550 MG tablet 550 mg PO BID Qty: 0 RF: 0 furosemide 40 mg tablet 40 mg PO DAILY RF: 0 spironolactone [Aldactone] 100 mg tablet 100 mg PO DAILY RF: 0 ciprofloxacin HCl 500 mg tablet 500 mg PO DAILY RF: 0 warfarin 2 mg tablet 2 mg PO DAILY RF: 0 omeprazole 20 mg capsule,delayed release(DR/EC) 20 mg PO BID RF: 0 oxycodone 5 mg tablet 5 mg PO BID RF: 0 calcium carbonate 500 mg calcium (1,250 mg) Tablet,Chewable 500 mg PO BID RF: 0 Referrals: Chuy Jacinto DO [Primary Care Provider] -
== END 2019-04-27 20:30 | disposition home or self-care (01) ==
PROVIDERS: Emergency Medicine; Emergency Provider Nurse Practitioner Family; PCP Anesthesiology
DX: J90 Pleural effusion, not elsewhere classified (principal); R06.02 Shortness of breath
CPT/HCPCS: 36591; 71046; 71275; 80053; 81003; 82550; 83605; 83880; 84484; 85025; 85610; 93005; 93010; 94640; 96374; 96375; 99283; 99285; J1200; J2405; J7613; Q9967

== ENCOUNTER 2019-05-10 19:04 | Emergency (ER) | payer MEDICARE, OTHER, SELFPAY ==
[2019-05-10 19:11] VITALS: BP 123/74; PULSE 76; RESP 16; O2SAT 98; BMI 30.4
--- NOTE | 2019-05-10 19:19 | ED_ITS ---
HPI - General Adult General Chief complaint: Abdominal Pain Stated complaint: vomiting, has liver disease Time Seen by Provider: 05/10/19 19:08 Source: patient Mode of arrival: Ambulatory Limitations: no limitations History of Present Illness HPI narrative: 48-year-old male with a history of primary sclerosing chola ngitis. States that on Sunday of this week he had 1 episode of vomiting. has had nothing since then. It was after he ate something. States that this afternoon he had a 2nd episode of vomiting. It was shortly after he ate something again this evening. He thought maybe it was the Percocet that he took at noon which was about 6 hours prior to his vomiting. He denies any other symptoms to include current nausea, abdominal pain, fevers, abdominal distention. Related Data Home Medications Medication Instructions Recorded Confirmed Fosamax Plus D 1 tab PO WEEKLY #0 tab 05/28/16 12/11/17 nadolol [Corgard] 80 mg PO DAILY #0 tab 05/28/16 03/03/19 aspirin 81 mg PO DAILY #0 06/19/16 12/11/17 acetaminophen 500 mg PO Q6H PRN #0 06/25/16 03/03/19 rifaximin [Xifaxan] 550 mg PO BID #0 09/28/16 12/11/17 calcium carbonate 500 mg PO BID 03/03/19 ciprofloxacin HCl 500 mg PO DAILY 03/03/19 03/03/19 furosemide 40 mg PO DAILY 03/03/19 03/03/19 omeprazole 20 mg PO BID 03/03/19 03/03/19 oxycodone 5 mg PO BID 03/03/19 03/03/19 spironolactone [Aldactone] 100 mg PO DAILY 03/03/19 03/03/19 warfarin 2 mg PO DAILY 03/03/19 Allergies Allergy/AdvReac Type Severity Reaction Status Date / Time Iodinated Contrast Media AdvReac Intermediate NAUSEA Verified 05/10/19 19:13 [Iodinated Contrast Media - IV Dye] Review of Systems Constitutional Constitutional: Denies fever(s) and Denies headache(s) ENT Ears, Nose, Mouth, and Throat: Denies headache(s) Cardiovascular Cardiovascular: Denies chest pain and Denies dyspnea Respiratory Respiratory: Denies dyspnea Gastrointestinal Gastrointestinal: Denies abdominal pain, Denies change in stool character and Reports vomiting Genitourinary Genitourinary: Denies dysuria Musculoskeletal Musculoskeletal: Denies myalgias and Denies arthralgias Integumentary/Breasts Skin/Breast: Denies lesions and Denies rash Neurologic Neurologic: Denies behavioral changes and Denies headache(s) Psychiatric Psychiatric: Denies behavioral changes Hematologic/Lymphatic Hematologic/Lymphatic: Denies easy bleeding and Denies easy bruising FOR[facility]LY [facility] Medical History (Updated 05/11/19 @ 00:29 by Davide Lujan DO) Anemia (Inactive) Chronic back pain (Acute) GI bleed (Inactive) Lower GI bleed (Inactive) Pleural effusion (Inactive) Primary sclerosing cholangitis (Inactive) Thrombocytopenia (Inactive) Social History Smoking Status: Never smoker Social History Smoking Status: Never smoker Exam Initial Vital Signs Initial Vital Signs: Vital Signs Pulse Rate 76 05/10/19 19:11 Respiratory Rate 16 05/10/19 19:11 Blood Pressure 123/74 05/10/19 19:11 Pulse Oximetry 98 05/10/19 19:11 Const General: cooperative, comfortable, well developed and well groomed Orientation: alert, awake and oriented x3 Resp Effort & Inspection: normal respiratory effort Cardio Rate: regular rate GI Inspection: non-distended Palpation: soft Skin Lesions: no lesions Rashes: no rashes Neuro General: alert and awake Cognition: normal cognition Speech: speech normal Extrem General: normal to inspection and capillary refill normal Psych Appearance: grossly normal and well kempt Course Orders Ordered: ED Orders 05/10/19 19:20 Complete Blood Count AUTO DIFF Stat Comprehensive Metabolic Panel Stat Lipase Stat Discontinued Medications Sodium Chloride (Normal Saline 0.9%) 1,000 mls @ 500 mls/hr IV BOLUS PRN PRN Reason: Fluid replacement Last Infusion: 05/10/19 20:54 Dose: 0 mls/hr Documented by: Admin: 05/10/19 19:39 Dose: 500 mls/hr Documented by: LITA Vital Signs Vital signs: Vital Signs - 8 hr 05/10/19 19:11 05/10/19 19:26 Temperature 98.4 F Pulse Rate 76 76 Respiratory Rate 16 16 Blood Pressure 123/74 123/74 Pulse Oximetry 98 98 Medical Decision Making Lab Data Lab results reviewed: Yes I reviewed the patient's lab results. Result diagrams: 05/10/19 19:20 05/10/19 19:20 Labs: Lab Results 05/10/19 05/10/19 Range/Units 19:20 19:20 WBC 4.7 (4.5-11.0) X10^3/uL RBC 3.81 L (4.5-5.9) X10^6/uL Hgb 10.2 L (13.5-17.5) g/dL Hct 31.8 L (41-53) % MCV 83.6 (80-100) fL MCH 26.8 (26-34) PG MCHC 32.0 (30-36) % RDW 16.9 H (11.6-14.8) % Plt Count 130 L (150-400) X10^3/uL Neut % (Auto) 63.0 (50-75) % Lymph % (Auto) 15.1 L (25-40) % Gladwin % (Auto) 15.9 H (3-14) % Eos % (Auto) 4.7 H (2-4) % Baso % (Auto) 1.3 (0-2) % Neut # (Auto) 2900 (4417-4022) /uL Lymph # (Auto) 700 L (5481-7128) /uL Gladwin # (Auto) 700 (0-900) /uL Eos # (Auto) 200 (0-450) /uL Baso # (Auto) 100 (0-100) /uL Sodium 136 L (137-145) mmol/L Potassium 4.4 (3.4-5.1) mmol/L Chloride 103 (98-107) mmol/L Carbon Dioxide 26 (22-32) mmol/L BUN 14 (9-20) mg/dL Creatinine 0.90 (0.66-1.25) mg/dL Estimated GFR > 60.0 (>60) mL/min BUN/Creatinine Ratio 15.6 (6-22) Glucose 135 H (70-100) mg/dL Calcium 8.9 (8.4-10.2) mg/dL Total Bilirubin 2.1 H (0.2-1.3) mg/dL AST 107 H (17-59) IU/L ALT 52 (21-72) IU/L Alkaline Phosphatase 480 H (38-126) U/L Total Protein 7.4 (6.3-8.2) g/dL Albumin 3.5 (3.5-5.0) g/dL Globulin 3.9 (1.7-4.1) g/dL Albumin/Globulin Ratio 0.9 L (1.0-2.8) Lipase 128 (23-300) U/L MDM Narrative Medical decision making narrative: Patient has been symptoms free since arrival to the emergency department. He has tolerated oral intake. Labs are not worse from prior. He has no abdominal pain. Do not feel the patient needs admitted to the hospital. Will hold on any ultrasound. I reassured him that I do not think that it was his pain medication that he took 6 hours prior that caused his symptoms. will hold on further workup for now. Patient expressed understanding and agreement with plan. Discharge Plan Departure Patient Disposition: Home Clinical Impression: Primary sclerosing cholangitis Vomiting Qualifiers: Vomiting type: unspecified Vomiting Intractability: unspecified Nausea presence: unspecified Qualified Code(s): R11.10 - Vomiting, unspecified Discharge Date/Time: 05/10/19 20:56 Instructions: DI for Vomiting -- Adult Activity Restrictions/Additional Instructions: Continue all of your medications as directed. On Sunday contact your primary provider for follow-up. Return to the emergency department for any new or worsening symptoms Prescriptions: No Action Fosamax Plus D 70 MG/2,800 UNITS tablet 1 tab PO WEEKLY Qty: 0 RF: 0 nadolol [Corgard] 80 MG tablet 80 mg PO DAILY Qty: 0 RF: 0 aspirin 81 MG tablet,delayed release (DR/EC) 81 mg PO DAILY Qty: 0 RF: 0 acetaminophen 500 mg Tablet 500 mg PO Q6H PRN (Reason: pain) Qty: 0 RF: 0 rifaximin [Xifaxan] 550 MG tablet 550 mg PO BID Qty: 0 RF: 0 furosemide 40 mg tablet 40 mg PO DAILY RF: 0 spironolactone [Aldactone] 100 mg tablet 100 mg PO DAILY RF: 0 ciprofloxacin HCl 500 mg tablet 500 mg PO DAILY RF: 0 warfarin 2 mg tablet 2 mg PO DAILY RF: 0 omeprazole 20 mg capsule,delayed release(DR/EC) 20 mg PO BID RF: 0 oxycodone 5 mg tablet 5 mg PO BID RF: 0 calcium carbonate 500 mg calcium (1,250 mg) Tablet,Chewable 500 mg PO BID RF: 0 Referrals: Chuy Jacinto DO [Primary Care Provider] -
[2019-05-10 19:26] VITALS: BP 123/74; PULSE 76; RESP 16; TEMP 36.9; O2SAT 98; BMI 30.4
[2019-05-10] MEDS: SODIUM CHLORIDE 0.9% 1,000 ML 500 ML IV (19:39)
[2019-05-10 19:43] LABS: Alanine Aminotransferase 52 IU/L (21-72); Albumin 3.5 g/dL (3.5-5.0); Albumin Globulin Ratio 0.9 (1.0-2.8); Alkaline Phosphatase 480 U/L (38-126); Aspartate Aminotransferase 107 IU/L (17-59); BUN Creatinine Ratio 15.6 (6-22); Bilirubin Total 2.1 mg/dL (0.2-1.3); Blood Urea Nitrogen 14 mg/dL (9-20); Calcium 8.9 mg/dL (8.4-10.2); Carbon Dioxide 26 mmol/L (22-32); Chloride 103 mmol/L (98-107); Estimated Glomerular Filt Rate > 60.0 mL/min (>60); Globulin 3.9 g/dL (1.7-4.1); Glucose 135 mg/dL (70-100); HEMOLYSIS < 15 (0-50); Lipase 128 U/L (23-300); Potassium 4.4 mmol/L (3.4-5.1); Sodium 136 mmol/L (137-145); Total Protein 7.4 g/dL (6.3-8.2)
[2019-05-10 19:44] LABS: Add Manual Diff / Slide Review NO; Basophils Absolute Auto 100 /uL (0-100); Basophils Percent Auto 1.3 % (0-2); Eosinophils Absolute Auto 200 /uL (0-450); Eosinophils Percent Auto 4.7 % (2-4); Hematocrit 31.8 % (41-53); Hemoglobin 10.2 g/dL (13.5-17.5); Lymphocytes Absolute Auto 700 /uL (1100-4500); Lymphocytes Percent Auto 15.1 % (25-40); Mean Corpuscular Hemoglobin 26.8 PG (26-34); Mean Corpuscular Volume 83.6 fL (80-100); Monocytes Absolute Auto 700 /uL (0-900); Monocytes Percent Auto 15.9 % (3-14); Neutrophils Absolute Auto 2900 /uL (1500-7000); Platelet Count 130 X10^3/uL (150-400); Red Blood Cell Count 3.81 X10^6/uL (4.5-5.9); Red Cell Distribution Width 16.9 % (11.6-14.8); White Blood Cell Count 4.7 X10^3/uL (4.5-11.0)
== END 2019-05-10 20:56 | disposition home or self-care (01) ==
PROVIDERS: Emergency Provider Emergency Medicine; PCP Anesthesiology
DX: K83.09 Other cholangitis (principal); R11.10 Vomiting, unspecified
CPT/HCPCS: 36415; 80053; 83690; 85025; 99283

== ENCOUNTER 2023-11-29 06:41 | Emergency (ER) | payer MEDICARE, OTHER, SELFPAY ==
[2023-11-29 07:03] VITALS: BP 124/84; PULSE 70; RESP 16; TEMP 36.3; O2SAT 98; BMI 30.7
--- NOTE | 2023-11-29 07:30 | ED.NECK ---
HPI - Neck Pain/Injury General Chief Complaint: Neck Pain/Injury Stated Complaint: Sore neck Time Seen by Provider: 11/29/23 07:12 Source: patient Mode of arrival: Ambulatory Limitations: no limitations History of Present Illness HPI Narrative: Patient is a 53-year-old male who is here for evaluation of neck discomfort. He states that this morning when he woke up he tried to lift his head up off the bed and had sudden pain in the back of his neck. He then laid his head back down in the pain seemed to ease off a little bit. He then tried to turn his head to the left look at something on his night stand and he felt like it was going to ?lock up? he reports it in his upper neck and in the center. No radiation down his arms. No lower back pain. No trauma. Has not taken anything for symptoms prior to arrival Related Data Home Medications Medication Instructions Recorded Confirmed alendronate 70 mg-cholecalciferol 1 tab PO WEEKLY #0 tabs 05/28/16 12/11/17 (vitamin D3) 2,800 unit tablet (Fosamax Plus D) nadolol 80 mg tablet (Corgard) 80 mg PO DAILY #0 tabs 05/28/16 03/03/19 aspirin 81 mg tablet,delayed 81 mg PO DAILY ##0 06/19/16 12/11/17 release acetaminophen 500 mg tablet 500 mg PO Q6H PRN pain ##0 06/25/16 03/03/19 rifaximin 550 mg tablet (Xifaxan) 550 mg PO BID ##0 09/28/16 12/11/17 calcium carbonate 500 mg calcium 500 mg PO BID 03/03/19 (1,250 mg) chewable tablet ciprofloxacin HCl 500 mg tablet 500 mg PO DAILY 03/03/19 03/03/19 furosemide 40 mg tablet 40 mg PO DAILY 03/03/19 03/03/19 omeprazole 20 mg capsule,delayed 20 mg PO BID 03/03/19 03/03/19 release oxycodone 5 mg tablet 5 mg PO BID 03/03/19 03/03/19 spironolactone 100 mg tablet 100 mg PO DAILY 03/03/19 03/03/19 warfarin 2 mg tablet 2 mg PO DAILY 03/03/19 Previous Rx's Medication Instructions Recorded cyclobenzaprine 10 mg tablet 10 mg PO TID PRN muscle spasm #21 11/29/23 tabs Allergies Allergy/AdvReac Type Severity Reaction Status Date / Time Iodinated Contrast Media AdvReac Intermediate NAUSEA Verified 05/10/19 19:13 [Iodinated Contrast Media - IV Dye] Review of Systems Constitutional Constitutional: Reports system reviewed and no additional complaints, except as documented Musculoskeletal Musculoskeletal: Reports system reviewed and no additional complaints, except as documented Integumentary/Breasts Skin/Breast: Reports system reviewed and no additional complaints, except as documented Neurologic Neurologic: Reports system reviewed and no additional complaints, except as documented Patient History Medical History Pleural effusion Chronic back pain GI bleed Lower GI bleed Thrombocytopenia Anemia Primary sclerosing cholangitis Social History Smoking Status: Never smoker Smoking Status: Never smoker Substance Use Type: does not use Exam Initial Vital Signs Initial Vital Signs: Vital Signs Temperature 97.4 F L 11/29/23 07:03 Pulse Rate 70 11/29/23 07:03 Respiratory Rate 16 11/29/23 07:03 Blood Pressure 124/84 11/29/23 07:03 Pulse Oximetry 98 11/29/23 07:03 Oxygen Delivery Method Room Air 11/29/23 07:03 Back/Spine/Pelvis Cervical Spine: No cervical spinal tenderness Thoracic/Lumbar Spine: No thoracic spinal tenderness and No lumbar spinal tenderness Other: Some discomfort in the occipital region and the paraspinal cervical region Skin General: no rashes or lesions noted Neuro General: patient alert, patient awake and moves all extremities Course Vital Signs Vital signs: Vital Signs - 8 hr 11/29/23 07:03 Temperature 97.4 F L Pulse Rate 70 Respiratory Rate 16 Blood Pressure 124/84 Pulse Oximetry 98 Oxygen Delivery Method Room Air MDM - Neck Pain/Injury MDM Narrative Medical decision making narrative: History and physical was most consistent with a cervical muscle spasm. Low suspicion for fracture. Low suspicion that this is cardiac. No indication for imaging here in the ER. Was sent home with conservative measures. Will try muscle relaxers. We also described other things such as heat and ice and massage and light stretching. Discharge Plan Departure Patient Disposition: Home Clinical Impression: Cervical muscle strain Instructions: DI for Cervical Muscle Strain Activity Restrictions/Additional Instructions: Continue to the conservative measures such as heat/ice. You could also try light massage and stretching. You can try anti-inflammatories as well as Tylenol. Use the muscle relaxers as needed. Return to the emergency department for new symptoms. Prescriptions: New cyclobenzaprine 10 mg tablet 10 mg PO TID PRN (Reason: muscle spasm) Qty: 21 0RF No Action Fosamax Plus D 70 MG/2,800 UNITS tablet 1 tab PO WEEKLY Qty: 0 nadolol [Corgard] 80 MG tablet 80 mg PO DAILY Qty: 0 aspirin 81 MG tablet,delayed release (DR/EC) 81 mg PO DAILY Qty: 0 acetaminophen 500 mg Tablet 500 mg PO Q6H PRN (Reason: pain) Qty: 0 rifaximin [Xifaxan] 550 MG tablet 550 mg PO BID Qty: 0 furosemide 40 mg tablet 40 mg PO DAILY spironolactone [Aldactone] 100 mg tablet 100 mg PO DAILY ciprofloxacin HCl 500 mg tablet 500 mg PO DAILY warfarin 2 mg tablet 2 mg PO DAILY omeprazole 20 mg capsule,delayed release(DR/EC) 20 mg PO BID oxycodone 5 mg tablet 5 mg PO BID calcium carbonate 500 mg calcium (1,250 mg) Tablet,Chewable 500 mg PO BID Referrals: Olivier Alberto MD [Primary Care Provider] - Stand Alone Forms: Patient Portal/API
--- NOTE | 2023-11-29 07:40 | PC.NURSE ---
Pt states he woke up with neck pain and is nervous to turn his head stating pain shoots down his arms; states he was suppose to follow up with spine surgeon but cancelled his appt.
[2023-11-29] MEDS: HYDROCODONE/ACET 5/325 TABLET 1 TAB PO (07:41)
[2023-11-29] MEDS: CYCLOBENZAPRINE 10 MG TABLET PO (07:41)
--- NOTE | 2023-11-29 07:48 | PC.NURSE ---
Pt comfortable w/ dc. Questions answered. Pt states he does not wish to stick around for medicine to fully kick in.
== END 2023-11-29 07:48 | disposition home or self-care (01) ==
PROVIDERS: Emergency Provider Emergency Medicine; PCP Internal Medicine
DX: S16.1XXA Strain of muscle, fascia and tendon at neck level, initial encounter (principal); X50.1XXA Overexertion from prolonged static or awkward postures, initial encounter; Y93.84 Activity, sleeping
CPT/HCPCS: 99283

== ENCOUNTER 2025-05-07 08:22 | Observation (INO) | payer MEDICARE, OTHER, SELFPAY ==
[2025-05-07] VITALS (84 sets, daily range): BP systolic 116–164; BP diastolic 69–103; PULSE 76–104; RESP 10–23; TEMP 36.2–36.4; O2SAT 96–100; BMI 29.7; BMI 30.5
--- NOTE | 2025-05-07 08:30 | EKG_ITS ---
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
--- NOTE | 2025-05-07 08:36 | DI.RAD.S_ITS ---
PROCEDURE: XR CHEST 1V INDICATIONS: Chest Pain TECHNIQUE: One view of the chest was acquired. COMPARISON: [facility], CR, XR CHEST 1V, 12/21/2017, 21:20. FINDINGS: Surgical changes and devices: None. Lungs and pleura: Lungs are clear. No pleural effusions or pneumothorax. Mediastinum: Mediastinal contours appear normal. Heart size is normal. Bones and chest wall: No suspicious bony lesions. Overlying soft tissues appear unremarkable. IMPRESSION: No acute cardiopulmonary abnormality is seen. Approved by: Wayne Burton M.D. on 05/07/2025 at 9:05
--- NOTE | 2025-05-07 08:55 | DI.CT.S_ITS ---
PROCEDURE: CT ANGIO CHEST PE PROTOCOL INDICATIONS: concern for aortic dissection/PE. Reported history of primary sclerosing cholangitis. TECHNIQUE: After the administration of intravenous contrast, 2 mm thick sections acquired from the pulmonary apices to the posterior costophrenic angles. 3-dimensional maximum intensity projection (MIP) coronal and sagittal reformats were then acquired through the thorax. For radiation dose reduction, the following was used: automated exposure control, adjustment of mA and/or kV according to patient size. COMPARISON: [facility], CT, CT ANGIO CHEST PE PROTOCOL, 04/27/2019, 16:39. FINDINGS: Image quality: Diagnostic. Pulmonary arteries: Pulmonary arteries are normal in size, and demonstrate no intraluminal filling defects to suggest central pulmonary embolism. Lower Neck: No enlarged lymph nodes. Thyroid: No thyroid nodules which require sonographic follow up, per consensus guidelines. Axillae: No enlarged lymph nodes. Chest Wall: Unremarkable. Bones: Unremarkable. Lungs and Pleura: No pneumothorax or pleural effusions. No consolidation or suspicious nodules. Heart: Heart size is normal. No pericardial effusion. Thoracic Vessels: No aortic aneurysm. No evidence of aortic dissection. Mediastinum and Alfreda: No enlarged lymph nodes. Esophagus: No wall thickening. No hiatal hernia. Upper Abdomen: Clinically reported history of primary sclerosing cholangitis. Multiple upper abdominal surgical clips and bilateral biliary stents appear in place. This study is not optimized for hepatobiliary in visualization. At the posterior peritoneal space to the left of midline, slightly larger than the aortic diameter at the same axial level seen on series 11, image 155 there is a arterial enhancement vascular structure with adjacent surgical clips, measuring up to 2.7 cm in maximal axial dimension and from which hepatic arterial and superior mesenteric artery branches extend superiorly and inferiorly, respectively. The origin of the celiac axis and superior mesenteric arteries at the aortic margin appear patent but the superior mesentery artery appears likely surgically occluded shortly beyond its origin. This likely is a postsurgical change. IMPRESSION: No pulmonary embolus or evidence of aortic dissection or aneurysm. Source of chest pain is not seen. Please review the upper abdominal vascular comment, considered currently most likely postsurgical in origin. The patient carries a history of primary sclerosing cholangitis and has undergone extensive upper abdominal surgical intervention. No acute cardiopulmonary process. Dictated by: Sivakumar Silva M.D. on 05/07/2025 at 9:53 Approved by: Sivakumar Silva M.D. on 05/07/2025 at 10:06
--- NOTE | 2025-05-07 08:58 | ED.CHESTPAIN ---
HPI - Chest Pain General Chief Complaint: Chest Pain Stated Complaint: shoulder and chest pain x 1 day Time Seen by Provider: 05/07/25 08:26 Source: patient Mode of arrival: EMS Limitations: no limitations History of Present Illness HPI narrative: 54-year-old male history of primary sclerosing cholangitis status post multiorgan transplant at in 2019, here with several days of central chest and left greater than right shoulder pain. Pain is intermittent but present for most of the day. It is pleuritic. It is becoming more steady and severe since it began. Describes it as a stabbing pain in his chest. No associated dyspnea. No recent respiratory infectious symptoms. No history of heart disease or PE. He is prescribed warfarin since his transplant surgery. Denies any recent travel or lower extremity edema. No abdominal pain or GI illness Related Data Home Medications ?Medication ?Instructions ?Recorded ?Confirmed aspirin 81 mg tablet,delayed 81 mg PO DAILY ##0 06/19/16 05/07/25 release acetaminophen 500 mg tablet 500 mg PO Q6H PRN pain ##0 06/25/16 05/07/25 oxycodone 5 mg tablet 5 mg PO BID 03/03/19 05/07/25 warfarin 2 mg tablet 6 mg PO DAILY 03/03/19 05/07/25 ONE A DAY WOMENS TABLET 05/07/25 amlodipine 10 mg tablet 10 mg PO DAILY 05/07/25 05/07/25 carvedilol 12.5 mg tablet 12.5 mg PO DAILY 05/07/25 05/07/25 cholecalciferol (vitamin D3) See Rx Instructions .Route .COMPLEX 05/07/25 05/07/25 insulin lispro 100 unit/mL See Rx Instructions SUBCUT .COMPLEX 05/07/25 05/07/25 subcutaneous half-unit pen mycophenolate mofetil 500 mg tablet 500 mg PO BID 05/07/25 05/07/25 penicillin V potassium 250 mg 500 mg PO BID 05/07/25 05/07/25 tablet sodium bicarbonate 650 mg tablet 1,300 mg PO BID 05/07/25 05/07/25 tacrolimus 0.5 mg capsule, 1 mg PO BID 05/07/25 05/07/25 immediate-release tamsulosin 0.4 mg capsule 0.4 mg PO DAILY 05/07/25 05/07/25 ursodiol 250 mg tablet 500 mg PO BID 05/07/25 05/07/25 vancomycin 250 mg capsule 500 mg PO BID 05/07/25 05/07/25 Allergies Allergy/AdvReac Type Severity Reaction Status Date / Time Iodinated Contrast Media AdvReac Intermediate NAUSEA Verified 05/07/25 08:30 (Iodinated Contrast Media - IV Dye) Review of Systems Review of Systems Narrative: Pertinent ROS obtained and negative except as stated in HPI Patient History Medical History Pleural effusion Chronic back pain GI bleed Lower GI bleed Thrombocytopenia Anemia Primary sclerosing cholangitis Social History household members: spouse and children Smoking Status: Never smoker alcohol intake: never Smoking Status: Never smoker Exam Initial Vital Signs Initial Vital Signs: Vital Signs Pulse Rate 88 05/07/25 08:26 Pulse Oximetry 97 05/07/25 08:26 Constitutional: Well appearing, no acute distress Head: NCAT Cardiovascular: RRR, no murmur or rub. 2+ radial pulse in the right, 1+ on the left MSK -no reproducible chest wall pain however does have some reproducible shoulder pain with palpation over the bilateral trapezius muscle bellies Pulmonary: CTA bilaterally, no respiratory distress Abdominal: soft, non-tender Extremities: No LE edema Skin: warm and dry, no diaphoresis Neurological: Alert and oriented x3 Course Orders Ordered: Acetaminophen (Acetaminophen 325 Mg Tablet) 650 mg PO Q6H PRN PRN Reason: Fever/Mild Pain (1-3) Hydromorphone HCl (Hydromorphone Hcl 0.5 Mg/0.5 Ml Syringe) 0.5 mg IV Q2H PRN PRN Reason: Pain, Severe (7-10) Last Admin: 05/07/25 18:49 Dose: 0.5 mg Documented By: Admin: 05/07/25 16:11 Dose: 0.5 mg Documented By: DANIEL Naloxone HCl (Naloxone 0.4 Mg/Ml Vial) 0.2 mg IV Q2MIN PRN PRN Reason: Opiate Reversal Nitroglycerin (Nitroglycerin 0.4 Mg Sl Tab) 0.4 mg SL [id number] PRN PRN Reason: Chest Pain Last Admin: 05/07/25 09:12 Dose: 0.4 mg Documented By: RB Ondansetron HCl (Ondansetron 4 Mg/2 Ml Inj) 4 mg IV Q8HR PRN PRN Reason: Nausea And Vomiting Oxycodone HCl (Oxycodone Ir 10 Mg Tablet) 10 mg PO Q3H PRN PRN Reason: Pain, Moderate (4-6) Last Admin: 05/07/25 17:07 Dose: 10 mg Documented By: DANIEL Discontinued Medications Sodium Chloride (Normal Saline 0.9%) 1,000 mls @ 1,000 mls/hr IV BOLUS PRN PRN Reason: Fluid replacement Last Infusion: 05/07/25 12:10 Dose: Infused Documented By: Admin: 05/07/25 10:12 Dose: 1,000 mls/hr Documented By: JAMILA Morphine Sulfate (Morphine 4 Mg/Ml Inj) 4 mg IV NOW ONE Stop: 05/07/25 09:46 Last Admin: 05/07/25 10:11 Dose: 4 mg Documented By: JAMILA Morphine Sulfate (Morphine 4 Mg/Ml Inj) 4 mg IV NOW ONE Stop: 05/07/25 12:20 Last Admin: 05/07/25 12:27 Dose: 4 mg Documented By: TOVA Ondansetron HCl (Ondansetron 4 Mg/2 Ml Inj) 4 mg IV NOW ONE Stop: 05/07/25 09:03 Last Admin: 05/07/25 09:07 Dose: 4 mg Documented By: TOVA Vital Signs Vital signs: Vital Signs - 8 hr 05/07/25 08:26 05/07/25 08:27 05/07/25 08:27 Temperature Pulse Rate 88 87 Respiratory Rate 17 Blood Pressure 164/103 H Pulse Oximetry 97 98 Oxygen Delivery Method 05/07/25 08:30 05/07/25 08:30 05/07/25 08:30 Temperature 97.4 F L Pulse Rate 89 85 Respiratory Rate 15 20 Blood Pressure 164/103 H 154/95 H Pulse Oximetry 96 96 Oxygen Delivery Method Room Air 05/07/25 09:00 05/07/25 09:00 05/07/25 09:10 Temperature Pulse Rate 82 Respiratory Rate 14 Blood Pressure 141/93 H 139/101 H Pulse Oximetry 98 Oxygen Delivery Method 05/07/25 09:10 05/07/25 09:11 05/07/25 09:11 Temperature Pulse Rate 84 82 Respiratory Rate 16 20 Blood Pressure 143/92 H Pulse Oximetry 98 98 Oxygen Delivery Method 05/07/25 09:12 05/07/25 09:27 05/07/25 09:27 Temperature Pulse Rate 80 85 Respiratory Rate 15 Blood Pressure 143/92 H 148/95 H Pulse Oximetry 98 Oxygen Delivery Method 05/07/25 09:30 05/07/25 09:30 05/07/25 09:35 Temperature Pulse Rate 88 94 H Respiratory Rate 17 12 Blood Pressure 139/92 H Pulse Oximetry 100 100 Oxygen Delivery Method 05/07/25 09:35 05/07/25 09:40 05/07/25 09:40 Temperature Pulse Rate 91 H Respiratory Rate 13 Blood Pressure 120/81 134/81 Pulse Oximetry 100 Oxygen Delivery Method 05/07/25 09:45 05/07/25 09:45 05/07/25 09:50 Temperature Pulse Rate 87 Respiratory Rate 21 Blood Pressure 132/83 116/81 Pulse Oximetry 97 Oxygen Delivery Method 05/07/25 09:50 05/07/25 09:55 05/07/25 09:55 Temperature Pulse Rate 86 84 Respiratory Rate 16 15 Blood Pressure 139/85 Pulse Oximetry 97 97 Oxygen Delivery Method 05/07/25 10:00 05/07/25 10:00 05/07/25 10:05 Temperature Pulse Rate 82 Respiratory Rate 13 Blood Pressure 140/86 141/86 H Pulse Oximetry 97 Oxygen Delivery Method 05/07/25 10:05 05/07/25 10:10 05/07/25 10:10 Temperature Pulse Rate 83 86 Respiratory Rate 19 17 Blood Pressure 142/85 H Pulse Oximetry 96 96 Oxygen Delivery Method 05/07/25 10:15 05/07/25 10:15 05/07/25 10:20 Temperature Pulse Rate 80 Respiratory Rate Blood Pressure 141/83 H 142/87 H Pulse Oximetry 98 Oxygen Delivery Method 05/07/25 10:20 05/07/25 10:25 05/07/25 10:25 Temperature Pulse Rate 78 80 Respiratory Rate 16 Blood Pressure 144/91 H Pulse Oximetry 98 98 Oxygen Delivery Method 05/07/25 10:30 05/07/25 10:30 05/07/25 10:35 Temperature Pulse Rate 89 Respiratory Rate Blood Pressure 137/87 157/90 H Pulse Oximetry 98 Oxygen Delivery Method 05/07/25 10:35 05/07/25 10:40 05/07/25 10:40 Temperature Pulse Rate 81 80 Respiratory Rate 14 13 Blood Pressure 148/89 H Pulse Oximetry 98 98 Oxygen Delivery Method 05/07/25 10:45 05/07/25 10:45 05/07/25 10:50 Temperature Pulse Rate 81 Respiratory Rate 11 L Blood Pressure 149/88 H 151/88 H Pulse Oximetry 97 Oxygen Delivery Method 05/07/25 10:50 05/07/25 10:55 05/07/25 10:55 Temperature Pulse Rate 81 80 Respiratory Rate 13 12 Blood Pressure 147/92 H Pulse Oximetry 98 98 Oxygen Delivery Method 05/07/25 11:00 05/07/25 11:00 05/07/25 11:05 Temperature Pulse Rate 81 Respiratory Rate 16 Blood Pressure 147/90 H 148/88 H Pulse Oximetry 97 Oxygen Delivery Method 05/07/25 11:05 05/07/25 11:10 05/07/25 11:10 Temperature Pulse Rate 79 80 Respiratory Rate 10 L 18 Blood Pressure 150/85 H Pulse Oximetry 97 97 Oxygen Delivery Method 05/07/25 11:15 05/07/25 11:15 05/07/25 11:20 Temperature Pulse Rate 79 Respiratory Rate 18 Blood Pressure 151/88 H 150/88 H Pulse Oximetry 97 Oxygen Delivery Method 05/07/25 11:20 05/07/25 11:25 05/07/25 11:25 Temperature Pulse Rate 78 79 Respiratory Rate 12 11 L Blood Pressure 149/86 H Pulse Oximetry 98 97 Oxygen Delivery Method 05/07/25 11:30 05/07/25 11:30 05/07/25 11:35 Temperature Pulse Rate 79 Respiratory Rate 17 Blood Pressure 146/86 H 147/85 H Pulse Oximetry 98 Oxygen Delivery Method 05/07/25 11:35 05/07/25 11:40 05/07/25 11:40 Temperature Pulse Rate 78 80 Respiratory Rate 16 13 Blood Pressure 147/89 H Pulse Oximetry 97 97 Oxygen Delivery Method 05/07/25 11:45 05/07/25 11:45 05/07/25 11:50 Temperature Pulse Rate 79 81 Respiratory Rate 17 Blood Pressure 140/85 Pulse Oximetry 98 97 Oxygen Delivery Method 05/07/25 11:50 05/07/25 11:55 05/07/25 11:55 Temperature Pulse Rate 79 Respiratory Rate Blood Pressure 145/87 H 146/86 H Pulse Oximetry 98 Oxygen Delivery Method 05/07/25 12:00 05/07/25 12:00 05/07/25 12:05 Temperature Pulse Rate 78 Respiratory Rate 13 Blood Pressure 146/85 H 145/89 H Pulse Oximetry 97 Oxygen Delivery Method 05/07/25 12:05 05/07/25 12:10 05/07/25 12:10 Temperature Pulse Rate 77 91 H Respiratory Rate 17 23 Blood Pressure 143/96 H Pulse Oximetry 98 98 Oxygen Delivery Method 05/07/25 12:15 05/07/25 12:15 05/07/25 12:20 Temperature Pulse Rate 87 89 Respiratory Rate 19 21 Blood Pressure 151/94 H Pulse Oximetry 97 97 Oxygen Delivery Method 05/07/25 12:20 05/07/25 12:25 05/07/25 12:25 Temperature Pulse Rate 86 Respiratory Rate 20 Blood Pressure 139/92 H 129/90 Pulse Oximetry 97 Oxygen Delivery Method 05/07/25 12:30 05/07/25 12:30 05/07/25 12:35 Temperature Pulse Rate 96 H Respiratory Rate 16 Blood Pressure 159/98 H 152/97 H Pulse Oximetry 97 Oxygen Delivery Method 05/07/25 12:35 05/07/25 12:40 05/07/25 12:40 Temperature Pulse Rate 88 85 Respiratory Rate 13 Blood Pressure 149/90 H Pulse Oximetry 97 98 Oxygen Delivery Method 05/07/25 12:45 05/07/25 12:45 05/07/25 12:49 Temperature Pulse Rate 85 91 H Respiratory Rate 16 Blood Pressure 149/89 H Pulse Oximetry 96 98 Oxygen Delivery Method 05/07/25 12:50 05/07/25 12:50 05/07/25 12:55 Temperature Pulse Rate 92 H 85 Respiratory Rate 21 12 Blood Pressure 147/92 H Pulse Oximetry 98 97 Oxygen Delivery Method 05/07/25 12:55 05/07/25 13:00 05/07/25 13:00 Temperature Pulse Rate 85 Respiratory Rate 12 Blood Pressure 148/91 H 146/91 H Pulse Oximetry 97 Oxygen Delivery Method 05/07/25 13:05 05/07/25 13:05 05/07/25 13:10 Temperature Pulse Rate 87 Respiratory Rate 14 Blood Pressure 146/88 H 144/87 H Pulse Oximetry 97 Oxygen Delivery Method 05/07/25 13:10 05/07/25 13:15 05/07/25 13:15 Temperature Pulse Rate 86 83 Respiratory Rate 16 12 Blood Pressure 148/83 H Pulse Oximetry 97 98 Oxygen Delivery Method 05/07/25 13:20 05/07/25 13:20 05/07/25 13:25 Temperature Pulse Rate 82 Respiratory Rate 12 Blood Pressure 141/87 H 139/82 Pulse Oximetry 96 Oxygen Delivery Method 05/07/25 13:25 05/07/25 13:30 05/07/25 13:30 Temperature Pulse Rate 83 84 Respiratory Rate 13 12 Blood Pressure 145/85 H Pulse Oximetry 97 98 Oxygen Delivery Method 05/07/25 13:35 05/07/25 13:35 05/07/25 13:39 Temperature Pulse Rate 84 83 Respiratory Rate 20 Blood Pressure 147/86 H Pulse Oximetry 97 97 Oxygen Delivery Method 05/07/25 13:40 Temperature Pulse Rate Respiratory Rate Blood Pressure 143/83 H Pulse Oximetry Oxygen Delivery Method MDM - Chest Pain Medical Records Data Medical records narrative: In brief, this is a 54-year-old male with history of low back pain, spinal surgery, hypertension, PSC status post multi organ transplant at in 2019, here with several days of chest and left greater than right shoulder pain as described above. Pain is pleuritic In chart review: I see is prescribed warfarin 2 mg daily On arrival to the emergency department, the patient does not appear to be in acute distress but endorses 8/10 pain Exam is pertinent for: 1+ left radial pulse 2 +right radial pulse, no neurologic deficits grossly, abdominal exam is benign, chest wall is nontender to exam. Differential diagnoses considered but not limited to: Aortic dissection, pulmonary embolism, ACS, pneumothorax, MSK etiology, less likely GI etiology as abdominal exam is benign. Initial treatment plan includes: EKG, serial troponins, CTA. After discussion with radiology department will perform CT PE study and secondarily evaluate the aorta. BP is symmetric in LUE and RUE per RN EKG 0830 sinus tachycardia rate of 92, normal NM 166, QRS 94, QTC 474, left axis with LAFB, sinus rhythm with occasional PVC. There is less than [address]-elevation in 3 not in AVF in no reciprocal changes Laboratories pertinent for: CBC modest leukocytosis normal hemoglobin, eosinophilia, INR 1.9 as compared to 2.9 previously, modest acidosis with a bicarb of 21, possible AMY with creatinine 1.42 as compared to baseline 0.9 from 2019, nonelevated troponin, normal BNP, normal lipase, elevated LFTs which is chronic, normal bilirubin, Troponin negative x2 Repeat EKG 0938 sinus tachycardia rate of 91, normal intervals, left axis with LAFB, no ST-elevation noted no ST depression Imaging pertinent for: Chest CTA No pulmonary embolus or evidence of aortic dissection or aneurysm. Source of chest pain is not seen. Please review the upper abdominal vascular comment, considered currently most likely postsurgical in origin. The patient carries a history of primary sclerosing cholangitis and has undergone extensive upper abdominal surgical intervention. No acute cardiopulmonary process. On reassessment at 1219 after IV morphine pt still having some 4/10 chest pain. Heart score is 2. Ntg actually made CP worse. On reassessment at 2:05 p.m. the patient has 3/10 chest discomfort after 2nd dose of IV morphine. I was able to talk with Dr. Zafar of Cardiology and then Dr. Pepe of Internal Medicine who will admit for further workup to include stress test Pertinent scoring tools used to guide clinical decision making, if applicable: HEART Score for Major Cardiac Events from [employer] on 05/08/2025 All calculations should be rechecked by clinician prior to use RESULT SUMMARY: 3 points Low Score (0-3 points) Risk of MACE of 0.9-1.7%. INPUTS: History ?> 0 = Slightly suspicious EKG ?> 1 = Non-specific repolarization disturbance Age ?> 1 = 45-64 Risk factors ?> 1 = 1-2 risk factors Initial troponin ?> 0 = <=ormal limit Lab Data 05/07/25 08:45 05/07/25 08:45 Labs: Lab Results 05/07/25 05/07/25 05/07/25 Range/Units 08:45 09:36 11:00 WBC 11.7 H (4.5-11.0) X10^3/uL RBC 5.10 (4.5-5.9) X10^6/uL Hgb 16.8 (13.5-17.5) g/dL Hct 49.6 (41-53) % MCV 97.3 (80-100) fL MCH 32.9 (26-34) PG MCHC 33.8 (30-36) % RDW 14.0 (11.6-14.8) % Plt Count 424 H (150-400) X10^3/uL Neut % (Auto) 58.3 (50-75) % Lymph % (Auto) 18.8 L (25-40) % [place] % (Auto) 7.4 (3-14) % Eos % (Auto) 14.3 H (2-4) % Baso % (Auto) 1.2 (0-2) % Neut # (Auto) 6800 (9626-3696) /uL Lymph # (Auto) 2200 (9090-3699) /uL [place] # (Auto) 900 (0-900) /uL Eos # (Auto) 1700 H (0-450) /uL Baso # (Auto) 100 (0-100) /uL PT 21.2 H (9.4-12.5) SECONDS INR 1.9 H (0.9-1.3) APTT 63 H (25.1-36.5) SECONDS Sodium 142 (137-145) mmol/L Potassium 4.1 (3.4-5.1) mmol/L Chloride 109 H (98-107) mmol/L Carbon Dioxide 21 L (22-32) mmol/L BUN 18 (9-20) mg/dL Creatinine 1.42 H (0.66-1.25) mg/dL Estimated GFR 59 L (>60) mL/min BUN/Creatinine Ratio 12.7 (6-22) Glucose 90 (70-99) mg/dL Calcium 9.5 (8.4-10.2) mg/dL Magnesium 2.0 (1.6-2.3) mg/dL Total Bilirubin 0.7 (0.2-1.3) mg/dL AST 121 H (17-59) IU/L ALT 105 H (<50) IU/L Alkaline Phosphatase 228 H (38-126) U/L Total Creatine Kinase 129 (55-170) U/L Troponin I < 0.012 < 0.012 (0.01-0.034) ng/mL NT-Pro-B Natriuret Pep 25 (<125) pg/mL Total Protein 9.3 H (6.3-8.2) g/dL Albumin 4.8 (3.5-5.0) g/dL Globulin 4.5 H (1.7-4.1) g/dL Albumin/Globulin Ratio 1.1 (1.0-2.8) Lipase 86 (23-300) U/L Urine RBC None seen (0-5/HPF) Urine WBC None seen (0-5/HPF) Ur Squamous Epith Cells 0-1 /hpf (0-5/HPF) Urine Bacteria None seen (None) Ur Culture Indicated? Cult not indicated Vol Urine Centrifuged 10ml (spun) Urine Dip Bedside Urine Glucose Negative Bedside Urine Bilirubin - Negative Bedside Urine Ketone - Negative Urine Specific [place] 1.030 Bedside Urine Occult Blood - Negative Bedside Urine pH 6.0 Bedside Urine Protein +/- 15 Bedside Urine Urobilinogen - Negative Bedside Urine Nitrite - Negative Bedside Urine Leukocytes - Negative Esterase Discharge Plan Departure Patient Disposition: Admitted As Inpatient Clinical Impression: Chest pain Admit Date/Time: 05/07/25 14:10 Admit Provider: Bandar Pepe
[2025-05-07 08:59] LABS: Add Manual Diff / Slide Review NO; Hematocrit 49.6 % (41-53); Hemoglobin 16.8 g/dL (13.5-17.5); Lymphocytes Absolute Auto 2200 /uL (1100-4500); Mean Corpuscular HGB Conc 33.8 % (30-36); Mean Corpuscular Hemoglobin 32.9 PG (26-34); Mean Corpuscular Volume 97.3 fL (80-100); Platelet Count 424 X10^3/uL (150-400)
[2025-05-07] MEDS: ONDANSETRON 4 MG/2 ML INJ IV (09:07)
[2025-05-07] MEDS: NITROGLYCERIN 0.4 MG SL TAB SL (09:12)
[2025-05-07 09:13] LABS: INR 1.9 (0.9-1.3); Prothrombin Time 21.2 SECONDS (9.4-12.5)
[2025-05-07 09:15] LABS: PTT Partial Thromboplastin Tim 63 SECONDS (25.1-36.5)
--- NOTE | 2025-05-07 09:16 | PC.NURSE ---
Pt presents with chest and radiating shoulder pain. Reports 5/10 pain in chest and 8/10 in L shoulder. Pain does not radiate down arm. Pt reports pain onset was 0300 and chest pain peaked at the onset with 8/10 pain. Reports pain reduced to 5/[address] to ED. Pt prescribed oxycodone at home for lower back pain and takes ~5mg 2xday. Reports last dose was 2200 on 05/06 just before bed. Pt has hx of multi-organ transplant and had ERCP in February. Next ERCP is set for June of this year. Denies nausea/any other pain. No SOB.
[2025-05-07 09:17] LABS: Alanine Aminotransferase 105 IU/L (<50); Albumin 4.8 g/dL (3.5-5.0); Albumin Globulin Ratio 1.1 (1.0-2.8); Alkaline Phosphatase 228 U/L (38-126); Blood Urea Nitrogen 18 mg/dL (9-20); Calcium 9.5 mg/dL (8.4-10.2); Carbon Dioxide 21 mmol/L (22-32); Chloride 109 mmol/L (98-107); Creatine Kinase 129 U/L (55-170); Estimated Glomerular Filt Rate 59 mL/min (>60); Globulin 4.5 g/dL (1.7-4.1); Glucose 90 mg/dL (70-99); HEMOLYSIS 36 (0-50); Lipase 86 U/L (23-300); Magnesium 2.0 mg/dL (1.6-2.3); Potassium 4.1 mmol/L (3.4-5.1); Sodium 142 mmol/L (137-145); Total Protein 9.3 g/dL (6.3-8.2)
[2025-05-07 09:29] LABS: NT-proBNP (BNP-Adult 18+) 25 pg/mL (<125); Troponin I < 0.012 ng/mL (0.01-0.034)
--- NOTE | 2025-05-07 09:38 | EKG_ITS ---
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
[2025-05-07] MEDS: MORPHINE 4 MG/ML INJ IV ×2 (10:11→12:27)
[2025-05-07] MEDS: SODIUM CHLORIDE 0.9% 1,000 ML 1000 ML IV (10:12)
--- NOTE | 2025-05-07 11:01 | PC.NURSE ---
During pain reassessment pt reports some pain relief from Morphine IV with pain going for 7 to 5 out of 10 in L shoulder. Reports chest pain has improved and is minimal now, though increases when he is breathing.
[2025-05-07 11:28] LABS: Culture Indicated Urine Cult Not Indicated
[2025-05-07 11:42] LABS: Troponin I < 0.012 ng/mL (0.01-0.034)
--- NOTE | 2025-05-07 15:09 | EKG_ITS ---
[facility] [address] [address] Test Date: 2025-05-07 Pat Name: Malik Morales Department: [facility] Room: 210 Gender: Male [employer] Worker: : 1970 Requested By: Order Number: [id number] Reading MD: Bandar Pepe Measurements Intervals [place] Rate: 81 P: 57 [place]: 162 QRS: -36 QRSD: 96 T: 62 QT: 390 QTc: 453 Interpretive Statements Normal sinus rhythm Left axis deviation Electronically Signed On 05-07-2025 18:23:16 PDT by Bandar Pepe
--- NOTE | 2025-05-07 15:18 | PC.NURSE ---
Called for RN to RN at 1518 to RN Amberly. Call cut short on inpatient floor. Will call back.
--- NOTE | 2025-05-07 15:32 | PM.HP.1 ---
History of Present Illness History of Present Illness Date Patient Seen: 05/07/25 Time Patient Seen: 16:03 Chief complaint: shoulder and chest pain x 1 day Narrative: The patient was a 54-year-old male with a history of primary sclerosing cholangitis who underwent multi organ transplant at [facility] in 2021. This included pancreas, liver, small intestine, and stomach. He also had a splenectomy. This related to a portal vein thrombosis. He developed chest pain yesterday. This is pleuritic and is central anterior in his chest as well as affected his left arm. He denies recent viral symptoms including myalgias, fevers, URI symptoms. He denies any shortness a breath. No nausea. He has no tenderness with movement or palpation. Evaluation in the ED included a normal CTA chest and troponin. He has no current DM, HTN, HLD, or FHx of CAD. [facility] Medical History Pleural effusion Chronic back pain GI bleed Lower GI bleed Thrombocytopenia Anemia Primary sclerosing cholangitis Social History Smoking Status: Never smoker Meds Home Medications and Allergies Home Medications ?Medication ?Instructions ?Recorded ?Confirmed ?Type alendronate 70 mg-cholecalciferol 1 tab PO WEEKLY #0 tabs 05/28/16 12/11/17 History (vitamin D3) 2,800 unit tablet (Fosamax Plus D) nadolol 80 mg tablet (Corgard) 80 mg PO DAILY #0 tabs 05/28/16 03/03/19 History aspirin 81 mg tablet,delayed 81 mg PO DAILY ##0 06/19/16 12/11/17 History release acetaminophen 500 mg tablet 500 mg PO Q6H PRN pain ##0 06/25/16 03/03/19 History rifaximin 550 mg tablet (Xifaxan) 550 mg PO BID ##0 09/28/16 12/11/17 History calcium carbonate 500 mg PO BID 03/03/19 History ciprofloxacin HCl 500 mg tablet 500 mg PO DAILY 03/03/19 03/03/19 History furosemide 40 mg tablet 40 mg PO DAILY 03/03/19 03/03/19 History omeprazole 20 mg capsule,delayed 20 mg PO BID 03/03/19 03/03/19 History release oxycodone 5 mg tablet 5 mg PO BID 03/03/19 03/03/19 History spironolactone 100 mg tablet 100 mg PO DAILY 03/03/19 03/03/19 History warfarin 2 mg tablet 2 mg PO DAILY 03/03/19 History cyclobenzaprine 10 mg tablet 10 mg PO TID PRN muscle spasm #21 11/29/23 Rx tabs Allergies Allergy/AdvReac Type Severity Reaction Status Date / Time Iodinated Contrast Media AdvReac Intermediate NAUSEA Verified 05/07/25 08:30 (Iodinated Contrast Media - IV Dye) Review of Systems Review of Systems Narrative: All else reviewed and otherwise unremarkable except as noted in the history and physical. Exam Vital Signs (past 8 hours): - 05/07/25 08:26 05/07/25 08:27 05/07/25 08:27 Temperature Pulse Rate 88 87 Respiratory Rate 17 Blood Pressure 164/103 H Pulse Oximetry 97 98 Oxygen Delivery Method 05/07/25 08:30 05/07/25 08:30 05/07/25 08:30 Temperature 97.4 F L Pulse Rate 89 85 Respiratory Rate 15 20 Blood Pressure 164/103 H 154/95 H Pulse Oximetry 96 96 Oxygen Delivery Method Room Air 05/07/25 09:00 05/07/25 09:00 05/07/25 09:10 Temperature Pulse Rate 82 Respiratory Rate 14 Blood Pressure 141/93 H 139/101 H Pulse Oximetry 98 Oxygen Delivery Method 05/07/25 09:10 05/07/25 09:11 05/07/25 09:11 Temperature Pulse Rate 84 82 Respiratory Rate 16 20 Blood Pressure 143/92 H Pulse Oximetry 98 98 Oxygen Delivery Method 05/07/25 09:12 05/07/25 09:27 05/07/25 09:27 Temperature Pulse Rate 80 85 Respiratory Rate 15 Blood Pressure 143/92 H 148/95 H Pulse Oximetry 98 Oxygen Delivery Method 05/07/25 09:30 05/07/25 09:30 05/07/25 09:35 Temperature Pulse Rate 88 94 H Respiratory Rate 17 12 Blood Pressure 139/92 H Pulse Oximetry 100 100 Oxygen Delivery Method 05/07/25 09:35 05/07/25 09:40 05/07/25 09:40 Temperature Pulse Rate 91 H Respiratory Rate 13 Blood Pressure 120/81 134/81 Pulse Oximetry 100 Oxygen Delivery Method 05/07/25 09:45 05/07/25 09:45 05/07/25 09:50 Temperature Pulse Rate 87 Respiratory Rate 21 Blood Pressure 132/83 116/81 Pulse Oximetry 97 Oxygen Delivery Method 05/07/25 09:50 05/07/25 09:55 05/07/25 09:55 Temperature Pulse Rate 86 84 Respiratory Rate 16 15 Blood Pressure 139/85 Pulse Oximetry 97 97 Oxygen Delivery Method 05/07/25 10:00 05/07/25 10:00 05/07/25 10:05 Temperature Pulse Rate 82 Respiratory Rate 13 Blood Pressure 140/86 141/86 H Pulse Oximetry 97 Oxygen Delivery Method 05/07/25 10:05 05/07/25 10:10 05/07/25 10:10 Temperature Pulse Rate 83 86 Respiratory Rate 19 17 Blood Pressure 142/85 H Pulse Oximetry 96 96 Oxygen Delivery Method 05/07/25 10:15 05/07/25 10:15 05/07/25 10:20 Temperature Pulse Rate 80 Respiratory Rate Blood Pressure 141/83 H 142/87 H Pulse Oximetry 98 Oxygen Delivery Method 05/07/25 10:20 05/07/25 10:25 05/07/25 10:25 Temperature Pulse Rate 78 80 Respiratory Rate 16 Blood Pressure 144/91 H Pulse Oximetry 98 98 Oxygen Delivery Method 05/07/25 10:30 05/07/25 10:30 05/07/25 10:35 Temperature Pulse Rate 89 Respiratory Rate Blood Pressure 137/87 157/90 H Pulse Oximetry 98 Oxygen Delivery Method 05/07/25 10:35 05/07/25 10:40 05/07/25 10:40 Temperature Pulse Rate 81 80 Respiratory Rate 14 13 Blood Pressure 148/89 H Pulse Oximetry 98 98 Oxygen Delivery Method 05/07/25 10:45 05/07/25 10:45 05/07/25 10:50 Temperature Pulse Rate 81 Respiratory Rate 11 L Blood Pressure 149/88 H 151/88 H Pulse Oximetry 97 Oxygen Delivery Method 05/07/25 10:50 05/07/25 10:55 05/07/25 10:55 Temperature Pulse Rate 81 80 Respiratory Rate 13 12 Blood Pressure 147/92 H Pulse Oximetry 98 98 Oxygen Delivery Method 05/07/25 11:00 05/07/25 11:00 05/07/25 11:05 Temperature Pulse Rate 81 Respiratory Rate 16 Blood Pressure 147/90 H 148/88 H Pulse Oximetry 97 Oxygen Delivery Method 05/07/25 11:05 05/07/25 11:10 05/07/25 11:10 Temperature Pulse Rate 79 80 Respiratory Rate 10 L 18 Blood Pressure 150/85 H Pulse Oximetry 97 97 Oxygen Delivery Method 05/07/25 11:15 05/07/25 11:15 05/07/25 11:20 Temperature Pulse Rate 79 Respiratory Rate 18 Blood Pressure 151/88 H 150/88 H Pulse Oximetry 97 Oxygen Delivery Method 05/07/25 11:20 05/07/25 11:25 05/07/25 11:25 Temperature Pulse Rate 78 79 Respiratory Rate 12 11 L Blood Pressure 149/86 H Pulse Oximetry 98 97 Oxygen Delivery Method 05/07/25 11:30 05/07/25 11:30 05/07/25 11:35 Temperature Pulse Rate 79 Respiratory Rate 17 Blood Pressure 146/86 H 147/85 H Pulse Oximetry 98 Oxygen Delivery Method 05/07/25 11:35 05/07/25 11:40 05/07/25 11:40 Temperature Pulse Rate 78 80 Respiratory Rate 16 13 Blood Pressure 147/89 H Pulse Oximetry 97 97 Oxygen Delivery Method 05/07/25 11:45 05/07/25 11:45 05/07/25 11:50 Temperature Pulse Rate 79 81 Respiratory Rate 17 Blood Pressure 140/85 Pulse Oximetry 98 97 Oxygen Delivery Method 05/07/25 11:50 05/07/25 11:55 05/07/25 11:55 Temperature Pulse Rate 79 Respiratory Rate Blood Pressure 145/87 H 146/86 H Pulse Oximetry 98 Oxygen Delivery Method 05/07/25 12:00 05/07/25 12:00 05/07/25 12:05 Temperature Pulse Rate 78 Respiratory Rate 13 Blood Pressure 146/85 H 145/89 H Pulse Oximetry 97 Oxygen Delivery Method 05/07/25 12:05 05/07/25 12:10 05/07/25 12:10 Temperature Pulse Rate 77 91 H Respiratory Rate 17 23 Blood Pressure 143/96 H Pulse Oximetry 98 98 Oxygen Delivery Method 05/07/25 12:15 05/07/25 12:15 05/07/25 12:20 Temperature Pulse Rate 87 89 Respiratory Rate 19 21 Blood Pressure 151/94 H Pulse Oximetry 97 97 Oxygen Delivery Method 05/07/25 12:20 05/07/25 12:25 05/07/25 12:25 Temperature Pulse Rate 86 Respiratory Rate 20 Blood Pressure 139/92 H 129/90 Pulse Oximetry 97 Oxygen Delivery Method 05/07/25 12:30 05/07/25 12:30 05/07/25 12:35 Temperature Pulse Rate 96 H Respiratory Rate 16 Blood Pressure 159/98 H 152/97 H Pulse Oximetry 97 Oxygen Delivery Method 05/07/25 12:35 05/07/25 12:40 05/07/25 12:40 Temperature Pulse Rate 88 85 Respiratory Rate 13 Blood Pressure 149/90 H Pulse Oximetry 97 98 Oxygen Delivery Method 05/07/25 12:45 05/07/25 12:45 05/07/25 12:49 Temperature Pulse Rate 85 91 H Respiratory Rate 16 Blood Pressure 149/89 H Pulse Oximetry 96 98 Oxygen Delivery Method 05/07/25 12:50 05/07/25 12:50 05/07/25 12:55 Temperature Pulse Rate 92 H 85 Respiratory Rate 21 12 Blood Pressure 147/92 H Pulse Oximetry 98 97 Oxygen Delivery Method 05/07/25 12:55 05/07/25 13:00 05/07/25 13:00 Temperature Pulse Rate 85 Respiratory Rate 12 Blood Pressure 148/91 H 146/91 H Pulse Oximetry 97 Oxygen Delivery Method 05/07/25 13:05 05/07/25 13:05 05/07/25 13:10 Temperature Pulse Rate 87 Respiratory Rate 14 Blood Pressure 146/88 H 144/87 H Pulse Oximetry 97 Oxygen Delivery Method 05/07/25 13:10 05/07/25 13:15 05/07/25 13:15 Temperature Pulse Rate 86 83 Respiratory Rate 16 12 Blood Pressure 148/83 H Pulse Oximetry 97 98 Oxygen Delivery Method 05/07/25 13:20 05/07/25 13:20 05/07/25 13:25 Temperature Pulse Rate 82 Respiratory Rate 12 Blood Pressure 141/87 H 139/82 Pulse Oximetry 96 Oxygen Delivery Method 05/07/25 13:25 05/07/25 13:30 05/07/25 13:30 Temperature Pulse Rate 83 84 Respiratory Rate 13 12 Blood Pressure 145/85 H Pulse Oximetry 97 98 Oxygen Delivery Method 05/07/25 13:35 05/07/25 13:35 05/07/25 13:39 Temperature Pulse Rate 84 83 Respiratory Rate 20 Blood Pressure 147/86 H Pulse Oximetry 97 97 Oxygen Delivery Method 05/07/25 13:40 05/07/25 13:40 05/07/25 13:45 Temperature Pulse Rate 83 Respiratory Rate 21 Blood Pressure 143/83 H 136/84 Pulse Oximetry 96 Oxygen Delivery Method 05/07/25 13:45 05/07/25 13:50 05/07/25 13:50 Temperature Pulse Rate 83 87 Respiratory Rate 13 21 Blood Pressure 141/82 H Pulse Oximetry 96 97 Oxygen Delivery Method 05/07/25 13:55 05/07/25 13:55 05/07/25 14:00 Temperature Pulse Rate 83 Respiratory Rate 15 Blood Pressure 141/82 H 127/86 Pulse Oximetry 96 Oxygen Delivery Method 05/07/25 14:00 05/07/25 14:05 05/07/25 14:05 Temperature Pulse Rate 83 81 Respiratory Rate 12 13 Blood Pressure 142/88 H Pulse Oximetry 97 97 Oxygen Delivery Method 05/07/25 14:10 05/07/25 14:10 05/07/25 14:15 Temperature Pulse Rate 83 Respiratory Rate 14 Blood Pressure 142/86 H 144/82 H Pulse Oximetry 97 Oxygen Delivery Method 05/07/25 14:15 05/07/25 14:20 05/07/25 14:20 Temperature Pulse Rate 84 86 Respiratory Rate 14 17 Blood Pressure 147/88 H Pulse Oximetry 97 96 Oxygen Delivery Method 05/07/25 14:25 05/07/25 14:25 05/07/25 14:30 Temperature Pulse Rate 104 H Respiratory Rate 21 Blood Pressure 138/69 139/91 H Pulse Oximetry 97 Oxygen Delivery Method 05/07/25 14:30 05/07/25 14:35 05/07/25 14:35 Temperature Pulse Rate 82 83 Respiratory Rate 16 12 Blood Pressure 145/88 H Pulse Oximetry 98 98 Oxygen Delivery Method 05/07/25 14:40 05/07/25 14:40 05/07/25 14:45 Temperature Pulse Rate 82 Respiratory Rate 10 L Blood Pressure 143/87 H 143/88 H Pulse Oximetry 98 Oxygen Delivery Method 05/07/25 14:45 05/07/25 14:50 05/07/25 14:50 Temperature Pulse Rate 82 83 Respiratory Rate 13 13 Blood Pressure 143/88 H Pulse Oximetry 97 97 Oxygen Delivery Method 05/07/25 14:55 05/07/25 14:55 05/07/25 15:00 Temperature Pulse Rate 88 Respiratory Rate 19 Blood Pressure 146/89 H 147/91 H Pulse Oximetry 97 Oxygen Delivery Method 05/07/25 15:00 05/07/25 15:05 05/07/25 15:05 Temperature Pulse Rate 83 89 Respiratory Rate 16 15 Blood Pressure 135/84 Pulse Oximetry 96 98 Oxygen Delivery Method 05/07/25 15:10 05/07/25 15:10 05/07/25 15:15 Temperature Pulse Rate 84 Respiratory Rate 19 Blood Pressure 144/89 H 148/95 H Pulse Oximetry 98 Oxygen Delivery Method 05/07/25 15:15 05/07/25 15:20 05/07/25 15:20 Temperature Pulse Rate 84 81 Respiratory Rate 17 16 Blood Pressure 147/92 H Pulse Oximetry 98 98 Oxygen Delivery Method 05/07/25 15:25 05/07/25 15:25 Temperature Pulse Rate 82 Respiratory Rate 18 Blood Pressure 151/91 H Pulse Oximetry 97 Oxygen Delivery Method Oxygen Delivery Method Room Air Narrative Exam Narrative: NAD, alert and oriented, fluent speech, calm. Normocephalic skull, EOMI, anicteric sclera, symmetric pupils. Oropharynx unremarkable, no droop. Neck supple, midline trachea, no adenopathy. Lungs clear, normal rate and effort. Heart regular, no murmur gallop or rub. Abdomen is soft, non distended and non tender. Extremities are free of edema. Skin is free of rash or lesions. Joints are not swollen or deformed. Judgment appears to be normal. Objective ECG Impression: Intervals Laura Rate: 81 P: 57 CO: 162 QRS: -36 QRSD: 96 T: 62 QT: 390 QTc: 453 Interpretive Statements Normal sinus rhythm Left axis deviation Imaging Chest x-ray: Radiologist's impression: No acute cardiopulmonary abnormality is seen. CT scan - chest: Radiologist's impression: No pulmonary embolus or evidence of aortic dissection or aneurysm. Source of chest pain is not seen. Please review the upper abdominal vascular comment, considered currently most likely postsurgical in origin. The patient carries a history of primary sclerosing cholangitis and has undergone extensive upper abdominal surgical intervention. Labs 05/07/25 08:45 05/07/25 08:45 Labs: Laboratory Results - last 24 hr 05/07/25 05/07/25 05/07/25 08:45 09:36 11:00 WBC 11.7 H RBC 5.10 Hgb 16.8 Hct 49.6 MCV 97.3 MCH 32.9 MCHC 33.8 RDW 14.0 Plt Count 424 H Neut % (Auto) 58.3 Lymph % (Auto) 18.8 L [place] % (Auto) 7.4 Eos % (Auto) 14.3 H Baso % (Auto) 1.2 Neut # (Auto) 6800 Lymph # (Auto) 2200 [place] # (Auto) 900 Eos # (Auto) 1700 H Baso # (Auto) 100 PT 21.2 H INR 1.9 H APTT 63 H Sodium 142 Potassium 4.1 Chloride 109 H Carbon Dioxide 21 L BUN 18 Creatinine 1.42 H Estimated GFR 59 L BUN/Creatinine Ratio 12.7 Glucose 90 Calcium 9.5 Magnesium 2.0 Total Bilirubin 0.7 AST 121 H ALT 105 H Alkaline Phosphatase 228 H Total Creatine Kinase 129 Troponin I < 0.012 < 0.012 NT-Pro-B Natriuret Pep 25 Total Protein 9.3 H Albumin 4.8 Globulin 4.5 H Albumin/Globulin Ratio 1.1 Lipase 86 Urine RBC None seen Urine WBC None seen Ur Squamous Epith Cells 0-1 /hpf Urine Bacteria None seen Ur Culture Indicated? Cult not indicated Vol Urine Centrifuged 10ml (spun) Assessment & Plan Assessment & Plan narrative: 1. Atypical chest pain, active. 2. SMA occlusion, chronic. 3. Multi organ transplant, stable. 4. Primary sclerosing cholangitis 5. Long-term warfarin Time-Based Coding :: 35 min spent with patient and on the chart (including review of chart, obtaining history, exam, reviewing outside data, placing orders, documenting exam and treatment plan, and counseling patient) on 05/07. Quality MIPS - Admit I confirm the patient?s Advance Care Plan is present, Code status is documented, Surrogate decision maker is in patient?s record [If Yes, STOP here]: Yes MIPS - Meds 'Current medications' to include all prescriptions, [id number] products, herbals, cannabis/cannabidiol products, and vitamin/mineral/dietary (nutritional) supplements. I have utilized all available resources to obtain, update, or review the patient?s current medications. [If Yes, STOP here]: Yes
[2025-05-07 18:21] LABS: Troponin I < 0.012 ng/mL (0.01-0.034)
[2025-05-08] VITALS: BP 111/73; PULSE 84; RESP 13; TEMP 36.4; O2SAT 97
[2025-05-08 00:16] LABS: Troponin I < 0.012 ng/mL (0.01-0.034)
[2025-05-08 06:00] VITALS: BP 107/75; PULSE 88; RESP 17; TEMP 36.4; O2SAT 95
--- NOTE | 2025-05-08 11:41 | CM.DANOTE ---
DCP Assessment Note: Pt is a 54yo male, resident of [place], is admitted for chest pain. Pt lives in a house with his and family. Pt's Primary Care Provider is Dr. Olivier Alberto and insurance is Medicare and Phase III Development. Reviewed chart and discussed with multidisciplinary team pt's medical status and initial discharge needs. DCP met w/patient at bedside; introduced self and role. Present in the room is pt's , Deedee. Patient is at [facility] for stress test. Per patient , pt is independent at baseline and eager to discharge home if cleared after test. No discharge needs identified by pt at this time. Plan: Anticipating dc home with spouse to transport on 05/08 or when medically cleared, pending Nuc Med results. CM team will follow closely for coordination of discharge plans. GALINDO Lebron Discharge Planning/Care Management CM Discharge Assessment Start: 05/07/25 14:21 Freq: Status: Active Protocol: Document 05/08/25 11:39 MW (Rec: 05/08/25 11:41 MW [id number]) Discharge Planning Assessment Assigned Discharge GUILLE [place] [employer] Provider Olivier Alberto MD Insurance Medicare,Level 3 [employer] DPOA/Assigned Deedee Morales, Designee Name Contact Information [phone] Advance Directives? No History Provided By Patient,Family Member,Medical Record Has Patient been No admitted in last 30 days? Prior Living House Arrangements Comment [place] Household Members spouse,children Type of Drives own vehicle transporation used prior to admit Independent with ADL Yes 's Is patient alert and Yes oriented? Discharge Plan Home Transportation Sposue Arrangement Referrals Initiated None needed Review Status In Process Please Provide Date 05/08/25 Initial DC Assessment Was Performed Next Review Type Continued Stay Review
--- NOTE | 2025-05-08 13:27 | PM.DS.1 ---
History of Present Illness History of Present Illness Chief complaint: shoulder and chest pain x 1 day Narrative: The patient was a 54-year-old male with a history of primary sclerosing cholangitis who underwent multi organ transplant at [facility] in 2021. This included pancreas, liver, small intestine, and stomach. He also had a splenectomy. This related to a portal vein thrombosis. He developed chest pain yesterday. This is pleuritic and is central anterior in his chest as well as affected his left arm. He denies recent viral symptoms including myalgias, fevers, URI symptoms. He denies any shortness a breath. No nausea. He has no tenderness with movement or palpation. Evaluation in the ED included a normal CTA chest and troponin. He has no current DM, HTN, HLD, or FHx of CAD. Discharge Providers Provider Date of admission: 05/07/25 14:10 Discharge Date: 05/08/25 Primary care physician: Olivier Alberto MD Consults: None. Discharge provider: Bandar Pepe MD Summary Hospital Course Discharge Diagnosis: 1. Atypical Chest pain with normal stress test. 2. SMA occlusion, chronic. 3. Multi organ transplant, stable. 4. Primary sclerosing cholangitis 5. Long-term warfarin Hospital Course: He was admitted and treated with chest pain with pain medication. This did resolve. CTA was negative for acute pulmonary process and a stress test was unremarkable on the day of discharge and read as low risk. He was discharged home with reassurance. Status at Discharge Cognitive/behavioral status at discharge: oriented Functional status at discharge: independent ambulation Overall status at discharge: patient is back to baseline Time Spent with Patient Time spent: Greater than 30 minutes Exam Vital Signs (past 8 hours): - 05/08/25 06:00 Temperature 97.6 F Pulse Rate 88 Respiratory Rate 17 Blood Pressure 107/75 Pulse Oximetry 95 Oxygen Flow Rate 0 Oxygen Delivery Method Room Air Oxygen Flow Rate 0 Narrative Exam Narrative: NAD, alert and oriented. Fluent speech. Lungs are clear, normal rate and effort. Heart is regular, no murmur gallop or rub. Abdomen is soft, non distended. Extremities are free of edema. Objective ECG Impression: Impression: Intervals [place] Rate: 81 P: 57 [place]: 162 QRS: -36 QRSD: 96 T: 62 QT: 390 QTc: 453 Interpretive Statements Normal sinus rhythm Left axis deviation Imaging Multiple studies: : Radiologist's impression: Chest x-ray: Radiologist's impression: No acute cardiopulmonary abnormality is seen. CT scan - chest: Radiologist's impression: No pulmonary embolus or evidence of aortic dissection or aneurysm. Source of chest pain is not seen. Please review the upper abdominal vascular comment, considered currently most likely postsurgical in origin. The patient carries a history of primary sclerosing cholangitis and has undergone extensive upper abdominal surgical intervention. Labs 05/07/25 08:45 05/07/25 08:45 Labs: Laboratory Results - last 24 hr 05/07/25 05/07/25 05/07/25 17:45 22:28 23:42 POC Whole Bld Glucose 167 H Troponin I < 0.012 < 0.012 PFSH Medical History Pleural effusion Chronic back pain GI bleed Lower GI bleed Thrombocytopenia Anemia Primary sclerosing cholangitis Social History household members: spouse and children Smoking Status: Never smoker alcohol intake: never Discharge Assessment & Plan Assessment and Plan Assessment: 1. Atypical chest pain, resolved. Plan of Treatment: Discharge home with reassurance, no change to medications. Discharge Plan Discharge Plan Patient Disposition: Home Provider Discharge Comment: Stable for discharge home with close follow up with PCP if he was any recurrent problems. Discharge orders & Medications Prescriptions: Continued aspirin 81 MG tablet,delayed release (DR/EC) 81 mg PO DAILY Qty: 0 acetaminophen 500 mg Tablet 500 mg PO Q6H PRN (Reason: pain) Qty: 0 amlodipine 10 mg tablet 10 mg PO DAILY carvedilol 12.5 mg tablet 12.5 mg PO DAILY cholecalciferol (vitamin D3) See Rx Instructions .ROUTE .COMPLEX Rx Instructions: 2 TABS (2000 UNITS) PO DAILY vancomycin 250 mg capsule 500 mg PO BID ursodiol 250 mg tablet 500 mg PO BID tamsulosin 0.4 mg capsule 0.4 mg PO DAILY sodium bicarbonate 650 mg tablet 1,300 mg PO BID penicillin V potassium 250 mg tablet 500 mg PO BID tacrolimus 0.5 mg capsule 1 mg PO BID mycophenolate mofetil 500 mg tablet 500 mg PO BID ONE A DAY WOMENS TABLET insulin lispro 100 unit/mL insulin pen, half-unit See Rx Instructions SUBCUT .COMPLEX Patient Comments: [NO ORIGINAL SIG] Rx Instructions: 0-8 UNITS TID AC subcutaneously; 151-199 2 UNITS 200-249 3 UNITS 250-299 5 UNITS 300-349 7 UNITS >349 8 UNITS warfarin 2 mg tablet 6 mg PO DAILY oxycodone 5 mg tablet 5 mg PO BID Follow up/Referrals: Olivier Alberto MD [Primary Care Provider, Internal Medicine] Discharge Health Status Multidrug resistant organism: No MDRO Diet/Activity/Treatments Diet: Carb-consistent/Diabetic Visit Report/Discharge Packet Instructions: DI for Atypical Chest Pain Stand Alone Forms: Patient Portal/API Discharge Data Primary Care Provider: Olivier Alberto Attending Provider: Bandar Pepe Admit Date/Time: 05/07/25 14:10 Quality VTE Deep Vein Thrombosis/Pulmonary Embolism Present on Admission: No
[2025-05-08 13:45] VITALS: BP 110/72; PULSE 77; RESP 18; TEMP 35.7; O2SAT 97
--- NOTE | 2025-05-08 14:03 | PC.NURSE ---
Day shift: Paperwork signed and all questions answered. Has all personal belongings. No new MD scripts. Spouse in room for teachings. Pt wanted to ambulate to his car. Spouse is driving him home. Left unit at approx 1345.
--- NOTE | 2025-05-08 20:28 | DI.NM.S_ITS ---
DATE OF SERVICE: 05/08/2025 PROCEDURE: Exercise perfusion study. INDICATIONS: Chest pain, abnormal EKG. RADIOPHARMACEUTICAL: 27.5 millicuries technetium-99m Myoview IV was injected at stress and 9.5 millicuries technetium-99m Myoview IV was injected at rest. CARDIAC STRESS: The patient walked on Jett protocol for 7 minutes and 51 seconds under the supervision of an attending staff. Resting blood pressure 120/70 and peak blood pressure 150/80. Baseline rhythm sinus with left anterior fascicular block. During stress no convincing ischemic changes. The patient has intermittent PVCs without any ventricular tachycardia. 7 METs of workload. KAITLIN positive 3%. No chest pain. Had some shortness of breath. Normal recovery. RAW DATA: There is increased subdiaphragmatic activity. GATED STUDY: Stress LV ejection fraction 70% without any obvious wall motion abnormalities. Stress end-diastolic volume 105 mL. TID ratio 0.84, which is within normal limits. MYOCARDIAL PERFUSION SCAN: Stress supine and resting supine images were compared to each other. Resting supine images revealed small size, mildly decreased perfusion of basal inferolateral wall. Stress supine images revealed minimally decreased perfusion of basal inferolateral wall. No obvious reversible ischemia. CONCLUSION: No obvious reversible ischemia. There is a very small minimally decreased perfusion of basal inferolateral wall. On raw images, there is a tissue shadow seen in the inferior and inferolateral area of the heart. Normal wall motion. Hence, most likely, we are dealing with tissue attenuation artifact. There were no prone images. I will call this study likely a normal myocardial perfusion study. On EKG, no obvious ischemic EKG changes. Intermittent PVCs without any ventricular tachycardia. No chest pain. Walked on Jett protocol for 7 minutes and 51 seconds. Mildly diminished exercise tolerance. Normal blood pressure response. Preserved LV function. Overall, low-risk myocardial perfusion scan. AndrewMalik - MOIZ/khadijah/AY doc#: [id number]/job#: [id number] dd: 05/08/2025 12:46:00 dt: 05/08/2025 19:55:00 DICTATING MD/COPIES TO: Nikolas Renee MD COPIES MNE: BREE;
== END 2025-05-08 13:45 | disposition home or self-care (01) ==
LOC: ED 08:36 → AC 14:11
PROVIDERS: Admitting Provider Hospitalist; Emergency Provider Student in an Organized Health Care Education/Training Program; PCP Internal Medicine; Referring Provider Student in an Organized Health Care Education/Training Program; Visit Provider Hospitalist
DX: R07.89 Other chest pain (principal); K83.01 Primary sclerosing cholangitis; K55.1 Chronic vascular disorders of intestine; Z94.82 Intestine transplant status; Z94.4 Liver transplant status; Z94.83 Pancreas transplant status; Z94.89 Other transplanted organ and tissue status; Z90.81 Acquired absence of spleen; Z79.01 Long term (current) use of anticoagulants
CPT/HCPCS: 36415; 71045; 71275; 78452; 80053; 81003; 81015; 82550; 82962; 83690; 83735; 83880; 84484; 85025; 85610; 85730; 93005; 93017; 96361; 96374; 96375; 96376; 99284; G0378; A9502; J1171; J2272; J2405; J7030; Q9967